=== PATIENT | female | born 1960 | race Hispanic/Latino ===

== ENCOUNTER 2021-02-07 19:43 | Inpatient (IN) | payer OTHER, SELFPAY ==
[2021-02-07] VITALS (7 sets, daily range): BP systolic 94–128; BP diastolic 45–72
[~2021-02-07] VITALS: Ht 154.9 cm; Wt 59.5 kg
[2021-02-07 20:28] LABS: ABG BASE EXCESS -1.8 mmol/L (-2.0-3.0); ABG HCO3 19.5 mmol/L (21.0-28.0); ABG OXYGEN SATURATION 95.9 % (95.0-99.0); ABG PCO2 25 mmHg (32-45)
[2021-02-07] MEDS ORDERED: FAMOTIDINE 20MG VIAL IV ONE (20:30)
[2021-02-07] MEDS ORDERED: ACETAMINOPHEN 325 MG TAB PO ONE (20:30)
[2021-02-07 20:33] LABS: BASOPHILS % (AUTO) 0.3 % (0.0-5.0); HEMATOCRIT 31.6 % (36-48); LYMPHOCYTES % (AUTO) 29.8 % (21.0-51.0); MEAN CORPUSCULAR HEMOGLOBIN 27.3 pg (27.0-33.0); MEAN CORPUSCULAR HGB CONC 32.3 g/dL (32.0-36.0); MEAN CORPUSCULAR VOLUME 84.5 fL (79-99); MONOCYTES % (AUTO) 11.1 % (3.0-13.0); NEUTROPHILS % (AUTO) 58.3 % (40.0-77.0); PLATELET COUNT (AUTO) 75 K/uL (130-400); RED BLOOD CELL COUNT(AUTO) 3.74 MIL/uL (4.00-5.50); RED CELL DISTRIBUTION WIDTH 15.4 % (11.0-15.5); WHITE BLOOD COUNT (AUTO) 3.8 K/uL (4.8-10.8)
[2021-02-07] MEDS ORDERED: ACETAMINOPHEN 325 MG TAB ONE (20:34)
[2021-02-07 20:42] LABS: CREATININE 0.8 mg/dL (0.5-1.5); POTASSIUM 3.3 mmol/L (3.5-5.1)
[2021-02-07 20:43] LABS: INR 1.14 (0.85-1.15); PROTHROMBIN TIME 12.3 SEC (9.6-11.6)
[2021-02-07 20:44] LABS: PARTIAL THROMBOPLASTIN TIME 28.7 SEC (26.3-35.5)
[2021-02-07 20:46] LABS: ALBUMIN 2.8 g/dL (3.5-5.0); BILIRUBIN,DIRECT 0.4 mg/dL (0.0-0.3); BILIRUBIN,TOTAL 0.8 mg/dL (0.2-1.0); CRP QUANTITATIVE 33.1 mg/L (0.00-9.0); TOTAL PROTEIN, SERUM 7.2 g/dL (6.0-8.3)
[2021-02-07 20:48] LABS: APPEARANCE,URINE Clear (CLEAR); BILIRUBIN,URINE Small (NEGATIVE); COLOR,URINE Dark Yellow (YELLOW); GLUCOSE, URINE (UA) Negative (NEGATIVE); KETONES,URINE Trace mg/dL (NEGATIVE); LEUKOCYTE ESTERASE ,URINE Large (NEGATIVE); NITRATE,URINE Negative (NEGATIVE); OCCULT BLOOD,URINE Negative (NEGATIVE); PH,URINE 6.5 (5.0-8.0); PROTEIN,URINE POS 1+ mg/dL (NEGATIVE); UROBILINOGEN,URINE >=8.0 mg/dL (0.2-1.0)
[2021-02-07 21:00] LABS: SQUAMOUS EPITHELIAL CELL,UR TNTC /HPF (0-2)
[2021-02-07 21:03] LABS: BACTERIA,URINE Moderate /HPF (None Seen)
[2021-02-07 21:10] LABS: MUCUS,URINE Moderate LPF (None Seen)
[2021-02-07] MEDS ORDERED: 0.9%NACL 1000ML 1,000 ML IV STA (21:19)
[2021-02-07] MEDS ORDERED: 0.9%NACL 1000ML 1,000 ML IV ONE (21:23)
[2021-02-07] MEDS ORDERED: AZIT500T2 PO (21:24)
[2021-02-07] MEDS ORDERED: DEXT15LI57 PO (21:24)
[2021-02-07] MEDS ORDERED: AZITHROMYCIN 500MG VIAL IVPB ONE (21:30)
[2021-02-07] MEDS ORDERED: CEFTRIAXONE 1G VIAL IVP ONE (21:30)
[2021-02-07] MEDS ORDERED: 0.9% NACL 250ML IVPB ONE (21:30)
[2021-02-07 21:46] LABS: ERYTHROCYTE SEDIMENTATION RATE 45 MM/HR (0-30)
[2021-02-07] MEDS ORDERED: AZITHROMYCIN 500MG+NS 250ML 250 ML IV ONE (22:00)
[2021-02-07] MEDS: CEFTRIAXONE 1G VIAL IVP SCH (23:00)
[2021-02-07] MEDS ORDERED: ERGOCALCIFEROL (VITAMIN D2) 50,000 UNIT CAPSULE PO ONE (23:00)
[2021-02-07] MEDS ORDERED: LACTATED RINGERS 1000ML 1,000 ML IV SCH (23:00)
[2021-02-07] MEDS ORDERED: POTASSIUM CHLORIDE 10% ELIXIR 20 MEQ/15 ML UDCUP PO PRN (23:30)
[2021-02-07] MEDS ORDERED: POTASSIUM CHLORIDE 20MEQ/100ML 100 ML IV PRN (23:30)
[2021-02-07] MEDS ORDERED: LIDOCAINE HCL-MPF 1% 2ML VIAL IV PRN (23:30)
[2021-02-08] VITALS (7 sets, daily range): BP systolic 106–132; BP diastolic 47–75
[2021-02-08] MEDS ORDERED: ERGOCALCIFEROL (VITAMIN D2) 50,000 UNIT CAPSULE ONE (00:29)
[2021-02-08] MEDS: LACTATED RINGERS IV ONE ×2 (00:31→01:12)
[2021-02-08] MEDS: DOXYCYCLINE 100MG+NS 250ML IV SCH ×4 (00:31→23:01)
[2021-02-08] MEDS ORDERED: ALBUTEROL INHALER 90MCG/INH IH SCH (01:30)
[2021-02-08] MEDS ORDERED: ACETAMINOPHEN 325 MG TAB PO PRN (01:30)
[2021-02-08] MEDS ORDERED: NITROGLYCERIN 50MG/D5W 250ML 1 BOT ONE (03:10)
[2021-02-08 04:56] LABS: HEMATOCRIT 28.7 % (36-48); LYMPHOCYTES % (AUTO) 43.5 % (21.0-51.0); MEAN CORPUSCULAR HEMOGLOBIN 27.1 pg (27.0-33.0); MEAN CORPUSCULAR HGB CONC 32.4 g/dL (32.0-36.0); MEAN CORPUSCULAR VOLUME 83.7 fL (79-99); PLATELET COUNT (AUTO) 48 K/uL (130-400); RED BLOOD CELL COUNT(AUTO) 3.43 MIL/uL (4.00-5.50); RED CELL DISTRIBUTION WIDTH 15.3 % (11.0-15.5); WHITE BLOOD COUNT (AUTO) 2.1 K/uL (4.8-10.8)
[2021-02-08 05:20] LABS: ALBUMIN 2.4 g/dL (3.5-5.0); BILIRUBIN,TOTAL 0.7 mg/dL (0.2-1.0); CREATININE 0.6 mg/dL (0.5-1.5); CRP QUANTITATIVE 26.4 mg/L (0.00-9.0); POTASSIUM 3.2 mmol/L (3.5-5.1); TOTAL PROTEIN, SERUM 6.3 g/dL (6.0-8.3)
[2021-02-08] MEDS: GUAIFENESIN-DM 200/20 MG 10 ML PO PRN ×2 (05:37→23:02)
[2021-02-08 07:15] LABS: LYMPHOCYTES % (MANUAL) 39 % (22-44); MAN.DIFF COMMENT-IMPRESSION MANUAL DIFFERENTIAL; MONOCYTES % (MANUAL) 8 % (2-9); PLATELET MORPHOLOGY COMMENT MARKED DECREASE; SEGMENTED NEUTROPHILS % 53 % (40-70)
[2021-02-08] MEDS ORDERED: ENOXAPARIN SODIUM 40 MG/0.4 ML SYRINGE SQ SCH (09:00)
[2021-02-08] MEDS: FAMOTIDINE 20MG TAB PO SCH (09:24)
[2021-02-08] MEDS: ASCORBIC ACID 500 MG TAB PO SCH (09:24)
[2021-02-08] MEDS: ZINC SULFATE 220 CAPSULE PO SCH (09:24)
[2021-02-08] MEDS: KCL 20 MEQ ERTAB PO PRN ×2 (11:57→14:04)
[2021-02-08] MEDS: CEFTRIAXONE 1G VIAL IVP SCH ×2 (11:59→23:01)
[2021-02-08] MEDS ORDERED: ASPIRIN 81MG CHEW TAB PO ONE (14:00)
[2021-02-09 03:47] VITALS: BP 113/56
[2021-02-09 05:00] LABS: BASOPHILS % (AUTO) 0.4 % (0.0-5.0); HEMATOCRIT 29.2 % (36-48); LYMPHOCYTES % (AUTO) 33.9 % (21.0-51.0); MEAN CORPUSCULAR HEMOGLOBIN 26.6 pg (27.0-33.0); MEAN CORPUSCULAR HGB CONC 31.5 g/dL (32.0-36.0); MEAN CORPUSCULAR VOLUME 84.4 fL (79-99); MONOCYTES % (AUTO) 7.7 % (3.0-13.0); NEUTROPHILS % (AUTO) 57.3 % (40.0-77.0); PLATELET COUNT (AUTO) 59 K/uL (130-400); RED BLOOD CELL COUNT(AUTO) 3.46 MIL/uL (4.00-5.50); RED CELL DISTRIBUTION WIDTH 15.4 % (11.0-15.5); WHITE BLOOD COUNT (AUTO) 2.7 K/uL (4.8-10.8)
[2021-02-09 05:20] LABS: ALBUMIN 2.3 g/dL (3.5-5.0); BILIRUBIN,TOTAL 0.6 mg/dL (0.2-1.0); CREATININE 0.5 mg/dL (0.5-1.5); CRP QUANTITATIVE 28.5 mg/L (0.00-9.0); POTASSIUM 3.2 mmol/L (3.5-5.1); TOTAL PROTEIN, SERUM 6.2 g/dL (6.0-8.3)
[2021-02-09] MEDS: GUAIFENESIN-DM 200/20 MG 10 ML PO PRN ×3 (05:45→22:40)
[2021-02-09] MEDS: ALBUTEROL INHALER 90MCG/INH IH SCH ×4 (06:00→18:22)
[2021-02-09 07:10] VITALS: BP 127/69
[2021-02-09] MEDS: FAMOTIDINE 20MG TAB PO SCH (09:14)
[2021-02-09] MEDS: ASPIRIN 81MG CHEW TAB PO SCH (09:15)
[2021-02-09] MEDS: ASCORBIC ACID 500 MG TAB PO SCH (09:15)
[2021-02-09] MEDS: ZINC SULFATE 220 CAPSULE PO SCH (09:15)
[2021-02-09 10:38] VITALS: BP 129/66
[2021-02-09] MEDS: CEFTRIAXONE 1G VIAL IVP SCH ×2 (11:30→22:39)
[2021-02-09] MEDS: DOXYCYCLINE 100MG+NS 250ML IV SCH (13:54)
[2021-02-09 15:15] VITALS: BP 127/68
[2021-02-09 20:17] VITALS: BP 132/71
[2021-02-09] MEDS: KCL 20 MEQ ERTAB PO PRN (22:40)
[2021-02-09 23:32] VITALS: BP 116/59
[2021-02-10] MEDS: ALBUTEROL INHALER 90MCG/INH IH SCH ×3 (00:14→14:15)
[2021-02-10 03:09] VITALS: BP 131/71
[2021-02-10] MEDS: KCL 20 MEQ ERTAB PO PRN (04:28)
[2021-02-10 05:01] LABS: BASOPHILS % (AUTO) 0.3 % (0.0-5.0); EOSINOPHILS % (AUTO) 0.6 % (0.0-8.0); HEMATOCRIT 32.2 % (36-48); LYMPHOCYTES % (AUTO) 34.9 % (21.0-51.0); MEAN CORPUSCULAR HEMOGLOBIN 26.7 pg (27.0-33.0); MEAN CORPUSCULAR HGB CONC 32.3 g/dL (32.0-36.0); MEAN CORPUSCULAR VOLUME 82.8 fL (79-99); MONOCYTES % (AUTO) 7.7 % (3.0-13.0); NEUTROPHILS % (AUTO) 56.2 % (40.0-77.0); PLATELET COUNT (AUTO) 87 K/uL (130-400); RED BLOOD CELL COUNT(AUTO) 3.89 MIL/uL (4.00-5.50); RED CELL DISTRIBUTION WIDTH 15.4 % (11.0-15.5); WHITE BLOOD COUNT (AUTO) 3.5 K/uL (4.8-10.8)
[2021-02-10 05:17] LABS: ALBUMIN 2.5 g/dL (3.5-5.0); BILIRUBIN,TOTAL 0.8 mg/dL (0.2-1.0); CREATININE 0.5 mg/dL (0.5-1.5); CRP QUANTITATIVE 33.7 mg/L (0.00-9.0); POTASSIUM 3.5 mmol/L (3.5-5.1); TOTAL PROTEIN, SERUM 6.9 g/dL (6.0-8.3)
[2021-02-10 07:10] VITALS: BP 125/75
[2021-02-10] MEDS: ZINC SULFATE 220 CAPSULE PO SCH (09:38)
[2021-02-10] MEDS: FAMOTIDINE 20MG TAB PO SCH (09:39)
[2021-02-10] MEDS: ASPIRIN 81MG CHEW TAB PO SCH (09:39)
[2021-02-10] MEDS: ASCORBIC ACID 500 MG TAB PO SCH (09:39)
[2021-02-10 10:55] VITALS: BP 141/71
[2021-02-10] MEDS: CEFTRIAXONE 1G VIAL IVP SCH (14:14)
[2021-02-10] MEDS ORDERED: CLOTRIMAZOLE 30 GM CREAM.GM. TP SCH (14:57)
[2021-02-10 15:05] VITALS: BP 121/70
[2021-02-10] MEDS ORDERED: AEC81 PO (15:40)
[2021-02-10] MEDS ORDERED: CEFU500T67 PO (15:40)
[2021-02-10] MEDS ORDERED: THIA100T75 PO (16:38)
[2021-02-10] MEDS ORDERED: FOLI0.4T6 PO (16:38)
[2021-02-10] MEDS ORDERED: PANTOPRAZOLE 40 MG TAB DR PO SCH (17:30)
[2021-02-11 06:12] LABS: HEPATITIS A ANTIBODY IGM Negative (Negative); HEPATITIS B CORE IGM Negative (Negative); HEPATITIS Bs ANTIGEN SCREEN P Negative (Negative)
== END 2021-02-10 19:40 | disposition home or self-care (01) | DRG 177 ==
LOC: EDH 19:43 → EDHIP 19:44 → 4AH 02-08 05:41
PROVIDERS: ADMIT Internal Medicine; ATTEND Internal Medicine
DX: U07.1 COVID-19 (principal); A41.9 Sepsis, unspecified organism; R65.20 Severe sepsis without septic shock; J12.82 Pneumonia due to coronavirus disease 2019; J96.91 Respiratory failure, unspecified with hypoxia; D61.818 Other pancytopenia; E87.4 Mixed disorder of acid-base balance; N39.0 Urinary tract infection, site not specified; E87.6 Hypokalemia; B35.9 Dermatophytosis, unspecified; R53.81 Other malaise; Z56.0 Unemployment, unspecified; Z88.8 Allergy status to other drugs, medicaments and biological substances
CPT/HCPCS: 36415; 36600; 71045; 76705; 80053; 80074; 80076; 81001; 82550; 82803; 83605; 83615; 84145; 84484; 85025; 85378; 85610; 85651; 85730; 86140; 87040; 87088; 87635; 87804; 93005; 93306; 93356; 93970; 94760; C9803; G0378; J0456; J0696; J3490; J7030; J7120

== ENCOUNTER 2022-02-15 23:16 | Emergency (ER) | payer OTHER ==
[~2022-02-15] VITALS: Ht 154.9 cm; Wt 63.5 kg
[~2022-02-15 23:16] MED LIST: CYAN-35 PO; FERR324T4 PO; FOLI0.4T6 PO; PANT40TA54 PO; THIA100T75 PO
[2022-02-15] MEDS ORDERED: MORPHINE 2 MG SYG ONE (23:38)
[2022-02-16] MEDS ORDERED: MORPHINE 2 MG SYG IVP ONE
[2022-02-16] MEDS ORDERED: IBUP-1493 PO (00:53)
[2022-02-16 01:11] VITALS: BP 130/88
== END 2022-02-16 01:24 | disposition home or self-care (01) ==
LOC: EDH 23:16
DX: S82.002A Unspecified fracture of left patella, initial encounter for closed fracture (principal); X58.XXXA Exposure to other specified factors, initial encounter; Y93.89 Activity, other specified; Y92.89 Other specified places as the place of occurrence of the external cause; Y99.8 Other external cause status
CPT/HCPCS: 29505; 73552; 73562; 73590; 96374

== ENCOUNTER 2022-02-23 08:16 | Inpatient (IN) | payer OTHER ==
[~2022-02-23] VITALS: Ht 154.9 cm; Wt 61.2 kg
[~2022-02-23 08:16] MED LIST changes: +IBUP-1493 PO
[2022-02-23 09:03] LABS: BASOPHILS % (AUTO) 0.4 % (0.0-5.0); EOSINOPHILS % (AUTO) 2.1 % (0.0-8.0); HEMATOCRIT 26.7 % (36-48); LYMPHOCYTES % (AUTO) 28.2 % (21.0-51.0); MEAN CORPUSCULAR HEMOGLOBIN 35.8 pg (27.0-33.0); MEAN CORPUSCULAR VOLUME 99.6 fL (79-99); MONOCYTES % (AUTO) 7.5 % (3.0-13.0); NEUTROPHILS % (AUTO) 61.2 % (40.0-77.0); PLATELET COUNT (AUTO) 79 K/uL (130-400); RED BLOOD CELL COUNT(AUTO) 2.68 MIL/uL (4.00-5.50); RED CELL DISTRIBUTION WIDTH 15.9 % (11.0-15.5); WHITE BLOOD COUNT (AUTO) 4.7 K/uL (4.8-10.8)
[2022-02-23 09:18] LABS: ALBUMIN 2.8 g/dL (3.5-5.0); CREATININE 0.5 mg/dL (0.5-1.5); POTASSIUM 3.3 mmol/L (3.5-5.1); TOTAL PROTEIN, SERUM 6.6 g/dL (6.0-8.3)
[2022-02-23 09:27] LABS: B-TYPE NATRIURETIC PEPTIDE 72 pg/mL (0-100)
[2022-02-23] MEDS ORDERED: ASPIRIN 81MG CHEW TAB PO ONE (10:00)
[2022-02-23] MEDS ORDERED: ONDANSETRON 4MG INJ ONE (10:09)
[2022-02-23 10:14] LABS: APPEARANCE,URINE CLEAR (CLEAR); BILIRUBIN,URINE NEGATIVE (NEGATIVE); COLOR,URINE YELLOW (YELLOW); GLUCOSE, URINE (UA) NEGATIVE (NEGATIVE); KETONES,URINE NEGATIVE (NEGATIVE); LEUKOCYTE ESTERASE ,URINE NEGATIVE Leu/uL (NEGATIVE); NITRATE,URINE NEGATIVE (NEGATIVE); PROTEIN,URINE NEGATIVE (NEGATIVE); UROBILINOGEN,URINE 12 mg/dL (0.2-1.0)
[2022-02-23 10:24] LABS: MUCUS,URINE RARE LPF (None Seen); OTHER CASTS, URINE 1 /LPF (None Seen); SQUAMOUS EPITHELIAL CELL,UR FEW /HPF (0-2)
[2022-02-23] MEDS ORDERED: ONDANSETRON 4MG INJ IVP ONE (10:30)
[2022-02-23] MEDS ORDERED: IOHEXOL 350 MG/ML 100ML INFUS..BTL IV ONE (11:23)
[2022-02-23] MEDS ORDERED: NITROGLYCERIN 0.4 MG SL TAB SL PRN (15:00)
[2022-02-23] MEDS ORDERED: ACETAMINOPHEN 325 MG TAB PO PRN (15:00)
[2022-02-23] MEDS ORDERED: MAG/ALUM/SIMETH 30 ML UDCUP PO PRN (15:00)
[2022-02-23] MEDS: 0.9%NACL 1000ML 1,000 ML IV SCH (15:00)
[2022-02-23] MEDS ORDERED: LIDOCAINE HCL-MPF 1% 2ML VIAL IV PRN (15:00)
[2022-02-23] MEDS ORDERED: POTASSIUM CHLORIDE 20MEQ/100ML 100 ML IV PRN (15:00)
[2022-02-23] MEDS ORDERED: LACTULOSE 20 GM/30 ML UDCUP PO PRN (15:00)
[2022-02-23] MEDS ORDERED: POTASSIUM CHLORIDE 10% ELIXIR 20 MEQ/15 ML UDCUP PO PRN (15:00)
[2022-02-23] MEDS ORDERED: GUAIFENESIN-DM 200/20 MG 10 ML PO PRN (15:00)
[2022-02-23] MEDS ORDERED: MAGNESIUM 2GM PREMIX 50ML 50 ML IV PRN (15:00)
[2022-02-23] MEDS ORDERED: LIDOCAINE HCL 2% VISCOUS 15 ML UDCUP PO ONE (15:30)
[2022-02-23] MEDS ORDERED: MAG/ALUM/SIMETH 30 ML UDCUP PO ONE (15:30)
[2022-02-23] MEDS ORDERED: DICYCLOMINE HCL 10 MG/5 ML ML PO ONE (15:30)
[2022-02-23 15:36] LABS: INR 1.25 (0.85-1.15); PROTHROMBIN TIME 13.5 SEC (9.6-11.6)
[2022-02-23 15:38] LABS: PARTIAL THROMBOPLASTIN TIME 23.7 SEC (26.3-35.5)
[2022-02-23] MEDS ORDERED: KETOROLAC 15MG/ML VIAL (15MG/ML) ONE (17:35)
[2022-02-23] MEDS: KETOROLAC 15MG/ML VIAL (15MG/ML) IM PRN (17:35)
[2022-02-23] MEDS: ONDANSETRON 4MG INJ IV PRN (19:52)
[2022-02-23] MEDS: ATORVASTATIN 40 MG TABLET PO SCH (19:56)
[2022-02-23] MEDS: FAMOTIDINE 20MG TAB PO SCH (19:56)
[2022-02-23 20:00] VITALS: BP 149/85
[2022-02-23] MEDS ORDERED: FAMOTIDINE 20MG VIAL IV PRN (21:00)
[2022-02-24] VITALS: BP 148/73
[2022-02-24] MEDS: 0.9%NACL 1000ML 1,000 ML IV SCH ×3 (00:06→20:54)
[2022-02-24] MEDS: KETOROLAC 15MG/ML VIAL (15MG/ML) IM PRN ×3 (00:13→18:45)
[2022-02-24 04:00] VITALS: BP 126/69
[2022-02-24 05:04] LABS: BASOPHILS % (AUTO) 0.3 % (0.0-5.0); HEMATOCRIT 24.5 % (36-48); LYMPHOCYTES % (AUTO) 33.3 % (21.0-51.0); MEAN CORPUSCULAR HEMOGLOBIN 36.1 pg (27.0-33.0); MEAN CORPUSCULAR HGB CONC 35.1 g/dL (32.0-36.0); MEAN CORPUSCULAR VOLUME 102.9 fL (79-99); MONOCYTES % (AUTO) 9.3 % (3.0-13.0); NEUTROPHILS % (AUTO) 52.8 % (40.0-77.0); PLATELET COUNT (AUTO) 80 K/uL (130-400); RED BLOOD CELL COUNT(AUTO) 2.38 MIL/uL (4.00-5.50); RED CELL DISTRIBUTION WIDTH 16.5 % (11.0-15.5)
[2022-02-24 05:34] LABS: CREATININE 0.5 mg/dL (0.5-1.5); MAGNESIUM 1.9 mg/dL (1.80-2.40); PHOSPHORUS 2.7 mg/dL (2.5-4.9); POTASSIUM 3.2 mmol/L (3.5-5.1)
[2022-02-24] MEDS: KCL 20 MEQ ERTAB PO PRN ×3 (06:09→14:10)
[2022-02-24 08:00] VITALS: BP 136/69
[2022-02-24] MEDS: FAMOTIDINE 20MG TAB PO SCH ×2 (09:01→20:54)
[2022-02-24 11:57] VITALS: BP 118/63
[2022-02-24] MEDS: CLOPIDOGREL 75MG TAB PO SCH (14:11)
[2022-02-24 16:00] VITALS: BP 130/66
[2022-02-24] MEDS ORDERED: HYDROCORTISONE 1% CREAM 28G TP PRN (18:00)
[2022-02-24] MEDS: ASPIRIN 81 MG EC TAB PO SCH (18:40)
[2022-02-24 20:00] VITALS: BP 129/68
[2022-02-24] MEDS: DiphenhydrAMINE HCL 50 MG/ML VIAL IV PRN (20:54)
[2022-02-24] MEDS: ATORVASTATIN 40 MG TABLET PO SCH (20:54)
[2022-02-25] VITALS: BP 118/81
[2022-02-25] MEDS: DiphenhydrAMINE HCL 50 MG/ML VIAL IV PRN (02:54)
[2022-02-25 04:00] VITALS: BP 143/87
[2022-02-25 04:48] LABS: BASOPHILS % (AUTO) 0.4 % (0.0-5.0); EOSINOPHILS % (AUTO) 4.2 % (0.0-8.0); HEMATOCRIT 26.1 % (36-48); LYMPHOCYTES % (AUTO) 29.8 % (21.0-51.0); MEAN CORPUSCULAR HEMOGLOBIN 36.4 pg (27.0-33.0); MEAN CORPUSCULAR HGB CONC 34.9 g/dL (32.0-36.0); MEAN CORPUSCULAR VOLUME 104.4 fL (79-99); MONOCYTES % (AUTO) 9.7 % (3.0-13.0); NEUTROPHILS % (AUTO) 55.3 % (40.0-77.0); PLATELET COUNT (AUTO) 71 K/uL (130-400); RED CELL DISTRIBUTION WIDTH 17.4 % (11.0-15.5); WHITE BLOOD COUNT (AUTO) 4.7 K/uL (4.8-10.8)
[2022-02-25 04:55] LABS: CREATININE 0.5 mg/dL (0.5-1.5); POTASSIUM 3.7 mmol/L (3.5-5.1)
[2022-02-25] MEDS: KCL 20 MEQ ERTAB PO PRN ×2 (06:11→14:32)
[2022-02-25 08:00] VITALS: BP 152/79
[2022-02-25] MEDS: 0.9%NACL 1000ML 1,000 ML IV SCH ×2 (08:35→17:00)
[2022-02-25] MEDS: KETOROLAC 15MG/ML VIAL (15MG/ML) IM PRN ×3 (08:36→22:07)
[2022-02-25] MEDS: FAMOTIDINE 20MG TAB PO SCH ×2 (08:36→22:03)
[2022-02-25] MEDS: CLOPIDOGREL 75MG TAB PO SCH (08:37)
[2022-02-25] MEDS: ASPIRIN 81 MG EC TAB PO SCH (08:37)
[2022-02-25 12:00] VITALS: BP 119/64
[2022-02-25 16:00] VITALS: BP 129/74
[2022-02-25] MEDS: ACETAMINOPHEN 325 MG TAB PO PRN (17:42)
[2022-02-25] MEDS ORDERED: CEFAZOLIN SODIUM 1 GM VIAL IVP PRN (18:30)
[2022-02-25 20:27] VITALS: BP 140/73
[2022-02-25] MEDS: ATORVASTATIN 40 MG TABLET PO SCH (22:03)
[2022-02-26] VITALS (21 sets, daily range): BP systolic 116–154; BP diastolic 53–82
[2022-02-26] MEDS: 0.9%NACL 1000ML 1,000 ML IV SCH ×3 (02:32→21:03)
[2022-02-26] MEDS: KETOROLAC 15MG/ML VIAL (15MG/ML) IM PRN ×2 (04:18→10:28)
[2022-02-26 05:57] LABS: CREATININE 0.4 mg/dL (0.5-1.5); POTASSIUM 3.8 mmol/L (3.5-5.1)
[2022-02-26 06:54] LABS: BASOPHILS % (AUTO) 0.7 % (0.0-5.0); HEMATOCRIT 27.4 % (36-48); LYMPHOCYTES % (AUTO) 29.4 % (21.0-51.0); MEAN CORPUSCULAR HEMOGLOBIN 36.8 pg (27.0-33.0); MEAN CORPUSCULAR HGB CONC 34.7 g/dL (32.0-36.0); MEAN CORPUSCULAR VOLUME 106.2 fL (79-99); MONOCYTES % (AUTO) 8.1 % (3.0-13.0); NEUTROPHILS % (AUTO) 55.3 % (40.0-77.0); PLATELET COUNT (AUTO) 67 K/uL (130-400); RED BLOOD CELL COUNT(AUTO) 2.58 MIL/uL (4.00-5.50); RED CELL DISTRIBUTION WIDTH 18.1 % (11.0-15.5); WHITE BLOOD COUNT (AUTO) 4.2 K/uL (4.8-10.8)
[2022-02-26 07:09] LABS: PLATELET MORPHOLOGY COMMENT DECREASED
[2022-02-26] MEDS: ACETAMINOPHEN 325 MG TAB PO PRN (07:48)
[2022-02-26] MEDS: FAMOTIDINE 20MG TAB PO SCH ×2 (09:00→20:54)
[2022-02-26] MEDS ORDERED: LIDOCAINE PF 100MG/5ML (2%) SYRINGE 5ML ONE (12:42)
[2022-02-26] MEDS ORDERED: DEXAMETHASONE SOD PHOSPHATE 10MG/ML 1ML VIAL ONE (12:42)
[2022-02-26] MEDS ORDERED: SUCCINYLCHOLINE 200MG/10ML SYR ONE (12:42)
[2022-02-26] MEDS ORDERED: PROPOFOL 10 MG/ML 20ML VIAL IV ONE (12:45)
[2022-02-26] MEDS ORDERED: ONDANSETRON 4MG INJ ONE (12:45)
[2022-02-26] MEDS ORDERED: GLYCOPYRROLATE 1 MG/5 ML SYRINGE ONE ×2 (12:45→19:42)
[2022-02-26] MEDS ORDERED: NEOSTIGMINE 5MG/5ML SYR IV ONE ×2 (12:45→19:42)
[2022-02-26] MEDS ORDERED: MIDAZOLAM HCL 1 MG/ML 2ML VIAL ONE (12:46)
[2022-02-26] MEDS ORDERED: FENTANYL CITRATE PF 50 MCG/1 ML 2ML VIAL ONE ×3 (12:46→19:47)
[2022-02-26] MEDS ORDERED: ROCURONIUM 10MG/1ML SYR 10 MG/ML ML ONE (12:46)
[2022-02-26] MEDS ORDERED: ROPIVACAINE 0.5% 5MG/ML 30ML IJ ONE (13:04)
[2022-02-26] MEDS ORDERED: KCL 20 MEQ ERTAB PO PRN (19:30)
[2022-02-26] MEDS ORDERED: CYCLOBENZAPRINE HCL 10 MG TABLET PO PRN (19:30)
[2022-02-26] MEDS ORDERED: LIDOCAINE HCL-MPF 1% 2ML VIAL IV PRN (19:30)
[2022-02-26] MEDS ORDERED: FERROUS FUMARATE 324 MG TABLET PO PRN (19:30)
[2022-02-26] MEDS ORDERED: POTASSIUM CHLORIDE 20MEQ/100ML 100 ML IV PRN (19:30)
[2022-02-26] MEDS ORDERED: CALCIUM CARB 500MG PO PRN (19:30)
[2022-02-26] MEDS ORDERED: POTASSIUM CHLORIDE 10% ELIXIR 20 MEQ/15 ML UDCUP PO PRN (19:30)
[2022-02-26] MEDS ORDERED: HYDROCODONE/ACETAMINOPHEN 5/325 MG TAB PO PRN (19:30)
[2022-02-26] MEDS: ATORVASTATIN 40 MG TABLET PO SCH (20:54)
[2022-02-26] MEDS: DOCUSATE SODIUM 100 MG CAP PO SCH (20:54)
[2022-02-26] MEDS: CEFAZOLIN SODIUM 1 GM VIAL IVP SCH (21:00)
[2022-02-27 04:15] LABS: HEMATOCRIT 25.6 % (36-48); MEAN CORPUSCULAR HEMOGLOBIN 36.8 pg (27.0-33.0); MEAN CORPUSCULAR HGB CONC 35.5 g/dL (32.0-36.0); MEAN CORPUSCULAR VOLUME 103.6 fL (79-99); RED BLOOD CELL COUNT(AUTO) 2.47 MIL/uL (4.00-5.50); RED CELL DISTRIBUTION WIDTH 17.8 % (11.0-15.5); WHITE BLOOD COUNT (AUTO) 5.6 K/uL (4.8-10.8)
[2022-02-27 04:19] LABS: CREATININE 0.6 mg/dL (0.5-1.5); POTASSIUM 4.4 mmol/L (3.5-5.1)
[2022-02-27 04:21] LABS: INR 1.29 (0.85-1.15); PROTHROMBIN TIME 13.9 SEC (9.6-11.6)
[2022-02-27] MEDS: CEFAZOLIN SODIUM 1 GM VIAL IVP SCH (04:30)
[2022-02-27 04:31] VITALS: BP 140/74
[2022-02-27] MEDS: ONDANSETRON 4MG INJ IV PRN (04:35)
[2022-02-27] MEDS: KETOROLAC 15MG/ML VIAL (15MG/ML) IV PRN ×2 (06:45→10:46)
[2022-02-27] MEDS: FAMOTIDINE 20MG TAB PO SCH ×2 (07:29→20:35)
[2022-02-27] MEDS: DOCUSATE SODIUM 100 MG CAP PO SCH ×2 (07:29→20:35)
[2022-02-27] MEDS: HYDROCODONE/ACETAMINOPHEN 5/325 MG TAB PO PRN ×4 (07:30→22:22)
[2022-02-27] MEDS: DIPHENHYDRAMINE HCL 25 MG CAPSULE PO PRN ×2 (07:33→15:39)
[2022-02-27 08:00] VITALS: BP 133/70
[2022-02-27] MEDS: 0.9%NACL 1000ML 1,000 ML IV SCH ×2 (09:00→19:00)
[2022-02-27] MEDS: POLYETHYLENE GLYCOL 3350 17 GM POWD.PACK PO SCH (09:26)
[2022-02-27] MEDS ORDERED: ASPIRIN 81MG CHEW TAB PO SCH (11:00)
[2022-02-27] MEDS ORDERED: METOPROLOL SUCCINATE 25 MG TAB.SR.24H PO SCH (11:00)
[2022-02-27 11:07] LABS: RETICULOCYTE % (AUTO) 11.81 % (0.42-2.23)
[2022-02-27 11:55] LABS: THYROID STIMULATING HORMONE 0.38 uIU/mL (0.36-3.74)
[2022-02-27 12:00] VITALS: BP 123/67
[2022-02-27] MEDS: PSYLLIUM SEED 1 EACH PACKET PO SCH (12:00)
[2022-02-27 16:00] VITALS: BP 113/54
[2022-02-27 20:08] VITALS: BP 152/86
[2022-02-27] MEDS: ATORVASTATIN 40 MG TABLET PO SCH (20:35)
[2022-02-28 00:31] VITALS: BP 146/78
[2022-02-28 03:57] VITALS: BP 131/75
[2022-02-28 05:15] LABS: BASOPHILS % (AUTO) 0.5 % (0.0-5.0); EOSINOPHILS % (AUTO) 1.7 % (0.0-8.0); HEMATOCRIT 27.2 % (36-48); LYMPHOCYTES % (AUTO) 21.8 % (21.0-51.0); MEAN CORPUSCULAR HEMOGLOBIN 36.6 pg (27.0-33.0); MEAN CORPUSCULAR HGB CONC 34.6 g/dL (32.0-36.0); MEAN CORPUSCULAR VOLUME 105.8 fL (79-99); MONOCYTES % (AUTO) 9.2 % (3.0-13.0); NEUTROPHILS % (AUTO) 66.3 % (40.0-77.0); PLATELET COUNT (AUTO) 78 K/uL (130-400); RED BLOOD CELL COUNT(AUTO) 2.57 MIL/uL (4.00-5.50); RED CELL DISTRIBUTION WIDTH 18.5 % (11.0-15.5); WHITE BLOOD COUNT (AUTO) 8.5 K/uL (4.8-10.8)
[2022-02-28 05:24] LABS: INR 1.23 (0.85-1.15); PROTHROMBIN TIME 13.2 SEC (9.6-11.6)
[2022-02-28 05:33] LABS: CREATININE 0.7 mg/dL (0.5-1.5); PHOSPHORUS 3.4 mg/dL (2.5-4.9); POTASSIUM 3.9 mmol/L (3.5-5.1)
[2022-02-28] MEDS: HYDROCODONE/ACETAMINOPHEN 5/325 MG TAB PO PRN ×2 (06:28→14:22)
[2022-02-28 07:30] VITALS: BP 140/72
[2022-02-28] MEDS ORDERED: ASPIRIN 81MG CHEW TAB PO SCH (09:00)
[2022-02-28] MEDS ORDERED: METOPROLOL SUCCINATE 25 MG TAB.SR.24H PO SCH (09:00)
[2022-02-28] MEDS: DOCUSATE SODIUM 100 MG CAP PO SCH (09:14)
[2022-02-28] MEDS: FAMOTIDINE 20MG TAB PO SCH (09:16)
[2022-02-28] MEDS: POLYETHYLENE GLYCOL 3350 17 GM POWD.PACK PO SCH (09:16)
[2022-02-28] MEDS: DiphenhydrAMINE HCL 50 MG/ML VIAL IV PRN (09:17)
[2022-02-28] MEDS ORDERED: HYDR28.32 TP (10:33)
[2022-02-28] MEDS ORDERED: METO25TA3 PO (10:33)
[2022-02-28] MEDS ORDERED: FAMO20TA8 PO (10:33)
[2022-02-28] MEDS ORDERED: ATOR40TA69 PO (10:33)
[2022-02-28] MEDS ORDERED: ASPI-1005 PO (10:33)
[2022-02-28 11:00] VITALS: BP 137/74
[2022-02-28] MEDS: PSYLLIUM SEED 1 EACH PACKET PO SCH (12:30)
[2022-02-28] MEDS ORDERED: BISACODYL 5 MG TABLET.DR PO PRN (19:30)
[2022-03-01] MEDS ORDERED: BISACODYL 10 MG SUPP.RECT RC PRN (19:30)
== END 2022-02-28 14:30 | disposition home or self-care (01) | DRG 515 ==
LOC: EDH 08:16 → EDHIP 08:17 → UNDOADMIN 14:45 → 4DH 20:11
PROVIDERS: ADMIT Internal Medicine; ATTEND Internal Medicine
PROC: 0QSF04Z Reposition Left Patella with Internal Fixation Device, Open Approach (ICD-10-PCS; principal; 2022-02-26 17:35)
PROC: 30233N1 Transfusion of Nonautologous Red Blood Cells into Peripheral Vein, Percutaneous Approach (ICD-10-PCS; 2022-02-26 17:35)
DX: S82.032A Displaced transverse fracture of left patella, initial encounter for closed fracture (principal); I21.A1 Myocardial infarction type 2; Z20.822 Contact with and (suspected) exposure to COVID-19; K74.60 Unspecified cirrhosis of liver; D69.6 Thrombocytopenia, unspecified; W18.39XA Other fall on same level, initial encounter; B19.20 Unspecified viral hepatitis C without hepatic coma; D64.9 Anemia, unspecified; K21.9 Gastro-esophageal reflux disease without esophagitis; Z91.81 History of falling; Z86.16 Personal history of COVID-19; Z74.01 Bed confinement status; Y93.89 Activity, other specified; Y92.89 Other specified places as the place of occurrence of the external cause; Y99.8 Other external cause status
CPT/HCPCS: 36415; 71045; 71270; 73560; 80048; 80053; 81001; 82607; 82728; 82746; 83540; 83550; 83690; 83735; 83880; 84100; 84443; 84484; 85025; 85027; 85045; 85378; 85610; 85730; 86850; 86900; 86901; 86923; 87635; 93005; 93306; 93971; 97039; G0378; J0330; J0690; J1100; J1200; J1885; J2001; J2250; J2405; J2704; J2710; J2795; J3010; J3475; J3490; J7030; P9034; Q0163; Q9967

== ENCOUNTER 2022-04-16 11:10 | Emergency (ER) | payer OTHER ==
[~2022-04-16] VITALS: Ht 162.6 cm; Wt 61.2 kg
[~2022-04-16 11:10] MED LIST changes: +ASPI-1005 PO; +ATOR40TA69 PO; +FAMO20TA8 PO; +HYDR28.32 TP; -IBUP-1493 PO; +METO25TA3 PO; -PANT40TA54 PO; -THIA100T75 PO
[2022-04-16 11:12] VITALS: BP 128/76
== END 2022-04-16 12:51 | disposition left against medical advice (07) ==
LOC: EDH 11:10
DX: R10.9 Unspecified abdominal pain (principal); Z53.21 Procedure and treatment not carried out due to patient leaving prior to being seen by health care provider
CPT/HCPCS: 93005

== ENCOUNTER 2022-07-03 14:30 | Inpatient (IN) | payer OTHER ==
[~2022-07-03] VITALS: Ht 154.9 cm; Wt 55.8 kg
[2022-07-03] MEDS ORDERED: 0.9%NACL 1000ML 1,000 ML IV ONE (16:00)
[2022-07-03 16:29] LABS: BASOPHILS % (AUTO) 0.8 % (0.0-5.0); EOSINOPHILS % (AUTO) 0.8 % (0.0-8.0); HEMATOCRIT 25.1 % (36-48); LYMPHOCYTES % (AUTO) 25.5 % (21.0-51.0); MEAN CORPUSCULAR HEMOGLOBIN 32.1 pg (27.0-33.0); MEAN CORPUSCULAR HGB CONC 33.9 g/dL (32.0-36.0); MEAN CORPUSCULAR VOLUME 94.7 fL (79-99); MONOCYTES % (AUTO) 7.8 % (3.0-13.0); NEUTROPHILS % (AUTO) 64.8 % (40.0-77.0); PLATELET COUNT (AUTO) 72 K/uL (130-400); RED BLOOD CELL COUNT(AUTO) 2.65 MIL/uL (4.00-5.50); RED CELL DISTRIBUTION WIDTH 18.2 % (11.0-15.5); WHITE BLOOD COUNT (AUTO) 3.8 K/uL (4.8-10.8)
[2022-07-03] MEDS ORDERED: OCTREOTIDE ACETATE 100 MCG/ML AMP IV SCH (16:30)
[2022-07-03] MEDS ORDERED: OCTREOTIDE ACETATE 1,250 MCG in 0.9% NACL 250ML 250 ML IV SCH ×2 (16:30→22:00)
[2022-07-03] MEDS ORDERED: PANTOPRAZOLE 40 MG/VIAL IVP ONE (16:30)
[2022-07-03] MEDS ORDERED: ONDANSETRON 4MG INJ IVP ONE (16:30)
[2022-07-03 16:37] LABS: CREATININE 0.5 mg/dL (0.5-1.5); POTASSIUM 3.9 mmol/L (3.5-5.1)
[2022-07-03 16:43] LABS: ALBUMIN 2.6 g/dL (3.5-5.0); TOTAL PROTEIN, SERUM 5.9 g/dL (6.0-8.3)
[2022-07-03] MEDS: PANTOPRAZOLE 40MG INJ 80 MG in 0.9%NACL 100ML 100 ML IVP SCH (17:04)
[2022-07-03] MEDS ORDERED: IOHEXOL 350 MG/ML 100ML INFUS..BTL IV ONE (17:57)
[2022-07-03] MEDS ORDERED: ASPIRIN 81MG CHEW TAB PO ONE (22:00)
[2022-07-03] MEDS ORDERED: NITROGLYCERIN 0.4 MG SL TAB SL PRN (22:00)
[2022-07-03] MEDS: LACTATED RINGERS 1000ML 1,000 ML IV SCH (22:06)
[2022-07-04] VITALS (9 sets, daily range): BP systolic 109–143; BP diastolic 47–75
[2022-07-04] MEDS: PANTOPRAZOLE 40MG INJ 80 MG in 0.9%NACL 100ML 100 ML IVP SCH ×3 (02:18→22:30)
[2022-07-04 06:53] LABS: APPEARANCE,URINE CLEAR (CLEAR); BILIRUBIN,URINE NEGATIVE (NEGATIVE); COLOR,URINE YELLOW (YELLOW); GLUCOSE, URINE (UA) NEGATIVE (NEGATIVE); KETONES,URINE NEGATIVE (NEGATIVE); LEUKOCYTE ESTERASE ,URINE NEGATIVE Leu/uL (NEGATIVE); NITRATE,URINE NEGATIVE (NEGATIVE); OCCULT BLOOD,URINE NEGATIVE (NEGATIVE); PROTEIN,URINE NEGATIVE (NEGATIVE); UROBILINOGEN,URINE 0.2 mg/dL (0.2-1.0)
[2022-07-04 07:05] LABS: SQUAMOUS EPITHELIAL CELL,UR FEW /HPF (0-2)
[2022-07-04 07:12] LABS: CREATININE 0.7 mg/dL (0.5-1.5); MAGNESIUM 1.8 mg/dL (1.80-2.40); PHOSPHORUS 3.3 mg/dL (2.5-4.9); POTASSIUM 3.6 mmol/L (3.5-5.1)
[2022-07-04 07:35] LABS: BASOPHILS % (AUTO) 1.2 % (0.0-5.0); EOSINOPHILS % (AUTO) 6.3 % (0.0-8.0); LYMPHOCYTES % (AUTO) 36.5 % (21.0-51.0); MEAN CORPUSCULAR HEMOGLOBIN 32.2 pg (27.0-33.0); MEAN CORPUSCULAR VOLUME 97.6 fL (79-99); MONOCYTES % (AUTO) 10.7 % (3.0-13.0); NEUTROPHILS % (AUTO) 44.9 % (40.0-77.0); PLATELET COUNT (AUTO) 53 K/uL (130-400); RED BLOOD CELL COUNT(AUTO) 2.08 MIL/uL (4.00-5.50); RED CELL DISTRIBUTION WIDTH 18.4 % (11.0-15.5); WHITE BLOOD COUNT (AUTO) 2.5 K/uL (4.8-10.8)
[2022-07-04 07:59] LABS: % IRON SATURATION 11.2 % (22-44)
[2022-07-04 08:05] LABS: INR 1.41 (0.85-1.15); PROTHROMBIN TIME 15.1 SEC (9.6-11.6)
[2022-07-04 08:06] LABS: PARTIAL THROMBOPLASTIN TIME 29.9 SEC (26.3-35.5)
[2022-07-04 08:12] LABS: HEMATOCRIT 20.3 % (36-48)
[2022-07-04 08:36] LABS: CREATININE 0.7 mg/dL (0.5-1.5); EOSINOPHILS % (MANUAL) 6 % (1-6); LYMPHOCYTES % (MANUAL) 44 % (22-44); MAN.DIFF COMMENT-IMPRESSION MANUAL DIFFERENTIAL; MONOCYTES % (MANUAL) 3 % (2-9); POTASSIUM 3.6 mmol/L (3.5-5.1); SEGMENTED NEUTROPHILS % 47 % (40-70)
[2022-07-04 08:37] LABS: PLATELET MORPHOLOGY COMMENT MARKED DECREASE
[2022-07-04] MEDS: ASPIRIN 81MG CHEW TAB PO SCH (08:37)
[2022-07-04 08:41] LABS: ALBUMIN 2.2 g/dL (3.5-5.0)
[2022-07-04] MEDS ORDERED: PANTOPRAZOLE 40MG INJ 80 MG in 0.9%NACL 100ML 100 ML IV SCH (09:00)
[2022-07-04] MEDS ORDERED: COMPOUND IV REFRIGERATED 1 EACH IVSOLN MISC PRN (12:00)
[2022-07-04 15:12] LABS: HEMATOCRIT 25.3 % (36-48)
[2022-07-04 18:17] LABS: HEMATOCRIT 24.6 % (36-48)
[2022-07-04] MEDS: LACTATED RINGERS 1000ML 1,000 ML IV SCH (22:30)
[2022-07-05 00:33] LABS: HEMATOCRIT 23.8 % (36-48)
[2022-07-05 03:13] VITALS: BP 130/72
[2022-07-05] MEDS: PANTOPRAZOLE 40MG INJ 80 MG in 0.9%NACL 100ML 100 ML IVP SCH ×3 (06:33→23:39)
[2022-07-05 06:35] LABS: HEMATOCRIT 23.3 % (36-48)
[2022-07-05 08:20] VITALS: BP 135/71
[2022-07-05] MEDS: ASPIRIN 81MG CHEW TAB PO SCH (08:42)
[2022-07-05] MEDS: MORPHINE 4 MG SYG IV PRN ×2 (11:34→18:13)
[2022-07-05 12:30] VITALS: BP 119/63
[2022-07-05 16:20] VITALS: BP 131/74
[2022-07-05 18:00] LABS: HEMATOCRIT 26.3 % (36-48)
[2022-07-05 19:06] VITALS: BP 135/75
[2022-07-05 21:08] LABS: HEMATOCRIT 26.2 % (36-48)
[2022-07-05 23:22] VITALS: BP 143/73
[2022-07-06] VITALS (24 sets, daily range): BP systolic 109–148; BP diastolic 22–86
[2022-07-06 00:35] LABS: HEMATOCRIT 24.7 % (36-48)
[2022-07-06] MEDS: PANTOPRAZOLE 40MG INJ 80 MG in 0.9%NACL 100ML 100 ML IVP SCH (03:05)
[2022-07-06 06:22] LABS: HEMATOCRIT 25.7 % (36-48)
[2022-07-06] MEDS: MORPHINE 2 MG SYG IV PRN ×2 (08:40→20:46)
[2022-07-06] MEDS: ASPIRIN 81MG CHEW TAB PO SCH (08:44)
[2022-07-06 09:19] LABS: HEMATOCRIT 25.8 % (36-48)
[2022-07-06] MEDS ORDERED: 0.9%NACL 1000ML 1,000 ML IV ONE (11:58)
[2022-07-06] MEDS ORDERED: PROPOFOL 10 MG/ML 20ML VIAL IV ONE (13:23)
[2022-07-06] MEDS ORDERED: EPHEDRINE SULFATE 50 MG/ML AMPULE ONE (13:34)
[2022-07-06 15:38] LABS: HEMATOCRIT 30.3 % (36-48)
[2022-07-06 18:02] LABS: HEMATOCRIT 28.7 % (36-48)
[2022-07-06] MEDS: PANTOPRAZOLE 40 MG TAB DR PO SCH (20:40)
[2022-07-07 03:13] VITALS: BP 113/70
[2022-07-07 03:49] LABS: BASOPHILS % (AUTO) 0.7 % (0.0-5.0); EOSINOPHILS % (AUTO) 7.4 % (0.0-8.0); HEMATOCRIT 25.4 % (36-48); LYMPHOCYTES % (AUTO) 30.1 % (21.0-51.0); MEAN CORPUSCULAR HEMOGLOBIN 31.2 pg (27.0-33.0); MEAN CORPUSCULAR HGB CONC 34.3 g/dL (32.0-36.0); MONOCYTES % (AUTO) 8.5 % (3.0-13.0); NEUTROPHILS % (AUTO) 52.9 % (40.0-77.0); PLATELET COUNT (AUTO) 58 K/uL (130-400); RED BLOOD CELL COUNT(AUTO) 2.79 MIL/uL (4.00-5.50); RED CELL DISTRIBUTION WIDTH 21.4 % (11.0-15.5); WHITE BLOOD COUNT (AUTO) 2.7 K/uL (4.8-10.8)
[2022-07-07 04:11] LABS: ALANINE AMINOTRANSFERASE 97 U/L (12-78); ALBUMIN 2.6 g/dL (3.5-5.0); ASPARTATE AMINOTRANSFERASE 93 U/L (10-37); CARBON DIOXIDE 26 mmol/L (21-32); CHLORIDE 105 mmol/L (101-111); CREATININE 0.7 mg/dL (0.5-1.5); GLOMERULAR FILTR. RATE CALC 90 mL/min (>60); GLUCOSE,RANDOM 100 mg/dL (70-105); POTASSIUM 3.1 mmol/L (3.5-5.1); SODIUM SERUM 138 mmol/L (136-145); TOTAL PROTEIN, SERUM 5.8 g/dL (6.0-8.3); UREA NITROGEN, BLOOD 7 mg/dL (7-18)
[2022-07-07 04:12] LABS: CRP QUANTITATIVE < 2.00 mg/L (0.00-9.0)
[2022-07-07 04:37] LABS: EOSINOPHILS % (MANUAL) 2 % (1-6); LYMPHOCYTES % (MANUAL) 22 % (22-44); MAN.DIFF COMMENT-IMPRESSION MANUAL DIFFERENTIAL; MONOCYTES % (MANUAL) 7 % (2-9); REACTIVE LYMPHOCYTES 2 % (0-0); SEGMENTED NEUTROPHILS % 67 % (40-70)
[2022-07-07 06:01] LABS: ERYTHROCYTE SEDIMENTATION RATE 8 MM/HR (0-30)
[2022-07-07 06:53] LABS: MAGNESIUM 1.8 mg/dL (1.80-2.40); POTASSIUM 3.2 mmol/L (3.5-5.1)
[2022-07-07] MEDS ORDERED: PANT40TA55 PO (07:21)
[2022-07-07] MEDS ORDERED: MAGNESIUM 2GM PREMIX 50ML 50 ML IV PRN (08:00)
[2022-07-07] MEDS ORDERED: POTASSIUM CHLORIDE 20MEQ/100ML 100 ML IV PRN (08:00)
[2022-07-07] MEDS ORDERED: LIDOCAINE HCL-MPF 1% 2ML VIAL IV PRN (08:00)
[2022-07-07] MEDS ORDERED: POTASSIUM CHLORIDE 10% ELIXIR 20 MEQ/15 ML UDCUP PO PRN (08:00)
[2022-07-07 08:39] VITALS: BP 112/60
[2022-07-07] MEDS: PANTOPRAZOLE 40 MG TAB DR PO SCH (09:08)
[2022-07-07] MEDS: ASPIRIN 81MG CHEW TAB PO SCH (09:08)
[2022-07-07] MEDS: KCL 20 MEQ ERTAB PO PRN ×2 (09:12→09:13)
== END 2022-07-07 11:35 | disposition home or self-care (01) | DRG 377 ==
LOC: EDH 14:30 → EDHIP 14:31 → 2AH 07-04 09:15
PROVIDERS: ADMIT Hospitalist; ATTEND Hospitalist
PROC: 30233N1 Transfusion of Nonautologous Red Blood Cells into Peripheral Vein, Percutaneous Approach (ICD-10-PCS; principal; 2022-07-04)
PROC: 0DJ08ZZ Inspection of Upper Intestinal Tract, Via Natural or Artificial Opening Endoscopic (ICD-10-PCS; 2022-07-06)
DX: K92.2 Gastrointestinal hemorrhage, unspecified (principal); I21.A1 Myocardial infarction type 2; D61.818 Other pancytopenia; D62 Acute posthemorrhagic anemia; K76.6 Portal hypertension; Z20.822 Contact with and (suspected) exposure to COVID-19; K74.60 Unspecified cirrhosis of liver; B19.20 Unspecified viral hepatitis C without hepatic coma; Z59.7 Insufficient social insurance and welfare support; Z79.82 Long term (current) use of aspirin
CPT/HCPCS: 36415; 36430; 43235; 74177; 80048; 80053; 81001; 82270; 82728; 83540; 83550; 83735; 84100; 84132; 84145; 84484; 85014; 85018; 85025; 85610; 85651; 85730; 86140; 86850; 86900; 86901; 86923; 87635; 93005; A4606; C9113; G0378; J2270; J2354; J2405; J2704; J3475; J3490; J7030; J7050; J7120; P9016; Q9967

== ENCOUNTER 2022-09-06 14:48 | Observation (INO) | payer OTHER ==
[~2022-09-06] VITALS: Ht 154.9 cm; Wt 58.8 kg
[~2022-09-06 14:48] MED LIST changes: -ATOR40TA69 PO; -FAMO20TA8 PO; -METO25TA3 PO; +PANT40TA55 PO
[2022-09-06 15:41] LABS: BASOPHILS % (AUTO) 0.7 % (0.0-5.0); EOSINOPHILS % (AUTO) 1.2 % (0.0-8.0); HEMATOCRIT 30.9 % (36-48); LYMPHOCYTES % (AUTO) 29.4 % (21.0-51.0); MEAN CORPUSCULAR HEMOGLOBIN 32.1 pg (27.0-33.0); MONOCYTES % (AUTO) 6.8 % (3.0-13.0); NEUTROPHILS % (AUTO) 61.7 % (40.0-77.0); PLATELET COUNT (AUTO) 73 K/uL (130-400); RED BLOOD CELL COUNT(AUTO) 3.36 MIL/uL (4.00-5.50); RED CELL DISTRIBUTION WIDTH 14.6 % (11.0-15.5); WHITE BLOOD COUNT (AUTO) 4.3 K/uL (4.8-10.8)
[2022-09-06 15:44] LABS: CREATININE 0.6 mg/dL (0.5-1.5); POTASSIUM 3.8 mmol/L (3.5-5.1)
[2022-09-06 15:53] LABS: ALBUMIN 3.1 g/dL (3.5-5.0); TOTAL PROTEIN, SERUM 6.8 g/dL (6.0-8.3)
[2022-09-06] MEDS ORDERED: PANTOPRAZOLE 40 MG/VIAL IVP ONE (17:00)
[2022-09-06] MEDS ORDERED: ASPIRIN 81MG CHEW TAB PO ONE (17:00)
[2022-09-06 17:19] LABS: APPEARANCE,URINE CLEAR (CLEAR); BILIRUBIN,URINE NEGATIVE (NEGATIVE); COLOR,URINE YELLOW (YELLOW); GLUCOSE, URINE (UA) NEGATIVE (NEGATIVE); KETONES,URINE 10 mg/dL (NEGATIVE); LEUKOCYTE ESTERASE ,URINE 75 Leu/uL (NEGATIVE); NITRATE,URINE NEGATIVE (NEGATIVE); OCCULT BLOOD,URINE NEGATIVE (NEGATIVE); PROTEIN,URINE 20 mg/dL (NEGATIVE)
[2022-09-06 17:26] LABS: BACTERIA,URINE RARE /HPF (None Seen); MUCUS,URINE FEW LPF (None Seen); SQUAMOUS EPITHELIAL CELL,UR MOD /HPF (0-2); YEAST,URINE BUDDING RARE /HPF (None Seen)
[2022-09-06] MEDS ORDERED: LACTATED RINGERS 1000ML 500 ML IV ONE (20:30)
[2022-09-06 21:17] LABS: THYROID STIMULATING HORMONE 0.24 uIU/mL (0.36-3.74)
[2022-09-06] MEDS: PANTOPRAZOLE 40 MG/VIAL IVP SCH (21:37)
[2022-09-06 23:25] VITALS: BP 120/70
[2022-09-07 03:08] LABS: BASOPHILS % (AUTO) 0.5 % (0.0-5.0); EOSINOPHILS % (AUTO) 2.6 % (0.0-8.0); HEMATOCRIT 26.6 % (36-48); LYMPHOCYTES % (AUTO) 41.6 % (21.0-51.0); MEAN CORPUSCULAR HEMOGLOBIN 31.4 pg (27.0-33.0); MEAN CORPUSCULAR HGB CONC 33.8 g/dL (32.0-36.0); MEAN CORPUSCULAR VOLUME 92.7 fL (79-99); MONOCYTES % (AUTO) 8.2 % (3.0-13.0); PLATELET COUNT (AUTO) 60 K/uL (130-400); RED BLOOD CELL COUNT(AUTO) 2.87 MIL/uL (4.00-5.50); WHITE BLOOD COUNT (AUTO) 3.8 K/uL (4.8-10.8)
[2022-09-07 03:09] LABS: CREATININE 0.6 mg/dL (0.5-1.5); POTASSIUM 3.1 mmol/L (3.5-5.1)
[2022-09-07 04:06] VITALS: BP 115/57
[2022-09-07] MEDS: KCL 20 MEQ ERTAB PO PRN ×2 (04:23→09:13)
[2022-09-07] MEDS ORDERED: POTASSIUM CHLORIDE 10% ELIXIR 20 MEQ/15 ML UDCUP PO PRN (04:30)
[2022-09-07] MEDS ORDERED: POTASSIUM CHLORIDE 10MEQ/100ML 100 ML IV PRN (04:30)
[2022-09-07] MEDS: PANTOPRAZOLE 40 MG/VIAL IVP SCH (09:13)
[2022-09-07 09:17] VITALS: BP 119/75
[2022-09-07] MEDS ORDERED: PANT40TA55 PO (11:37)
[2022-09-07 12:31] VITALS: BP 106/62
== END 2022-09-07 13:15 | disposition still patient (30) ==
LOC: EDH 14:48 → INTOOBSV 14:49 → EDHIP 14:49 → 3CH 23:30
PROVIDERS: ADMIT Internal Medicine; ATTEND Internal Medicine
DX: R10.13 Epigastric pain (principal); R11.2 Nausea with vomiting, unspecified; R77.8 Other specified abnormalities of plasma proteins; D69.6 Thrombocytopenia, unspecified; D72.819 Decreased white blood cell count, unspecified; I21.4 Non-ST elevation (NSTEMI) myocardial infarction; K74.60 Unspecified cirrhosis of liver; R94.31 Abnormal electrocardiogram [ECG] [EKG]; Z86.19 Personal history of other infectious and parasitic diseases; Z79.899 Other long term (current) drug therapy; Z98.890 Other specified postprocedural states; Z98.891 History of uterine scar from previous surgery
CPT/HCPCS: 96374; 96376 ×2; 96361 ×2; 99285; 84443; 82550; 84484 ×4; 80053; 83690; 85025 ×2; 87088; 81001; 36415 ×2; 71045; 74176; 93005 ×2; 80048; G0378 ×20; J7120; C9113 ×3

== ENCOUNTER 2022-12-27 15:10 | Inpatient (IN) | payer OTHER ==
[~2022-12-27] VITALS: Ht 154.9 cm; Wt 60.8 kg
[~2022-12-27 15:10] MED LIST changes: -ASPI-1005 PO; -CYAN-35 PO; -FERR324T4 PO; -FOLI0.4T6 PO; -HYDR28.32 TP
[2022-12-27 16:01] LABS: MEAN CORPUSCULAR HEMOGLOBIN 22.9 pg (27.0-33.0); MEAN CORPUSCULAR HGB CONC 27.4 g/dL (32.0-36.0); MEAN CORPUSCULAR VOLUME 83.5 fL (79-99); PLATELET COUNT (AUTO) 101 K/uL (130-400); RED BLOOD CELL COUNT(AUTO) 1.88 MIL/uL (4.00-5.50); RED CELL DISTRIBUTION WIDTH 18.2 % (11.0-15.5); WHITE BLOOD COUNT (AUTO) 2.9 K/uL (4.8-10.8)
[2022-12-27 16:09] LABS: HEMATOCRIT 15.7 % (36-48)
[2022-12-27 16:11] LABS: CREATININE 0.8 mg/dL (0.5-1.5); POTASSIUM 3.4 mmol/L (3.5-5.1)
[2022-12-27 16:18] LABS: ALBUMIN 2.6 g/dL (3.5-5.0); BILIRUBIN,TOTAL 1.4 mg/dL (0.2-1.0); MAGNESIUM 1.8 mg/dL (1.80-2.40)
[2022-12-27 16:29] LABS: SARS-CoV-2, RNA, NAAT NEGATIVE SARS CoV-2 (NEGATIVE)
[2022-12-27 16:34] LABS: INFLUENZA TYPE A Negative For Type A (NEGATIVE); INFLUENZA TYPE B Negative For Type B (NEGATIVE)
[2022-12-27 17:04] LABS: BASOPHILS % (MANUAL) 2 % (0-2); EOSINOPHILS % (MANUAL) 1 % (1-6); LYMPHOCYTES % (MANUAL) 36 % (22-44); MONOCYTES % (MANUAL) 7 % (2-9); SEGMENTED NEUTROPHILS % 54 % (40-70); TOTAL CELLS COUNTED 100
[2022-12-27 17:08] LABS: MAN.DIFF COMMENT-IMPRESSION MANUAL DIFFERENTIAL; PLATELET MORPHOLOGY COMMENT SLIGHTLY DECREASED; WBC MORPHOLOGY SMUDGE CELLS 1+
[2022-12-27] MEDS ORDERED: PANTOPRAZOLE 40 MG/VIAL IVP ONE (17:30)
[2022-12-27] MEDS ORDERED: OCTREOTIDE ACETATE 100 MCG/ML AMP IV ONE (17:30)
[2022-12-27 17:33] LABS: APPEARANCE,URINE CLEAR (CLEAR); BILIRUBIN,URINE NEGATIVE (NEGATIVE); COLOR,URINE LIGHT-YELLOW (YELLOW); GLUCOSE, URINE (UA) NEGATIVE (NEGATIVE); KETONES,URINE NEGATIVE (NEGATIVE); LEUKOCYTE ESTERASE ,URINE NEGATIVE Leu/uL (NEGATIVE); NITRATE,URINE NEGATIVE (NEGATIVE); OCCULT BLOOD,URINE NEGATIVE (NEGATIVE); PH,URINE 6.5 (5.0-8.0); PROTEIN,URINE NEGATIVE (NEGATIVE); UROBILINOGEN,URINE 0.2 mg/dL (0.2-1.0)
[2022-12-27 17:35] LABS: ADD UA MICROSCOPIC NO
[2022-12-27 18:15] LABS: HEMATOCRIT 13.7 % (36-48)
[2022-12-27 18:24] LABS: RETICULOCYTE % (AUTO) 3.1 % (0.42-2.23)
[2022-12-27 18:40] LABS: % IRON SATURATION 2.7 % (22-44)
[2022-12-27 18:51] LABS: THYROID STIMULATING HORMONE 0.9 uIU/mL (0.36-3.74)
[2022-12-27] MEDS: PANTOPRAZOLE 40MG INJ 80 MG in 0.9%NACL 100ML 100 ML IV SCH (19:51)
[2022-12-27] MEDS: OCTREOTIDE ACETATE 1,250 MCG in 0.9% NACL 250ML 250 ML IV SCH (19:51)
[2022-12-27 20:04] LABS: INR 1.2 (0.85-1.15); PROTHROMBIN TIME 13.8 SEC (9.6-11.6)
[2022-12-27 20:06] LABS: PARTIAL THROMBOPLASTIN TIME 24.3 SEC (26.3-35.5)
[2022-12-28] VITALS (24 sets, daily range): BP systolic 100–136; BP diastolic 48–81; PULSE 62–76; RESP 11–25; TEMP 98.7; O2SAT 97–98
[2022-12-28] MEDS ORDERED: ACETAMINOPHEN 500 MG TABLET PO ONE (01:30)
[2022-12-28 02:04] LABS: HEMATOCRIT 20.4 % (36-48)
[2022-12-28] MEDS: PANTOPRAZOLE 40MG INJ 80 MG in 0.9%NACL 100ML 100 ML IV SCH ×3 (03:16→23:13)
[2022-12-28 08:17] LABS: HEMATOCRIT 21.1 % (36-48); MEAN CORPUSCULAR HEMOGLOBIN 25.8 pg (27.0-33.0); MEAN CORPUSCULAR HGB CONC 30.8 g/dL (32.0-36.0); MEAN CORPUSCULAR VOLUME 83.7 fL (79-99); RED BLOOD CELL COUNT(AUTO) 2.52 MIL/uL (4.00-5.50); RED CELL DISTRIBUTION WIDTH 16.6 % (11.0-15.5); WHITE BLOOD COUNT (AUTO) 2.1 K/uL (4.8-10.8)
[2022-12-28 08:29] LABS: ALBUMIN 2.2 g/dL (3.5-5.0); BILIRUBIN,TOTAL 4.2 mg/dL (0.2-1.0); CREATININE 0.8 mg/dL (0.5-1.5); MAGNESIUM 1.8 mg/dL (1.80-2.40); TOTAL PROTEIN, SERUM 5.1 g/dL (6.0-8.3)
[2022-12-28] MEDS ORDERED: ACETAMINOPHEN 325 MG TAB ONE (08:46)
[2022-12-28] MEDS ORDERED: POTASSIUM CHLORIDE 10% ELIXIR 20 MEQ/15 ML UDCUP PO PRN (10:00)
[2022-12-28] MEDS ORDERED: POTASSIUM CHLORIDE 20MEQ/100ML 100 ML IV PRN (10:00)
[2022-12-28] MEDS ORDERED: DiphenhydrAMINE HCL 50 MG/ML VIAL IV ONE (10:00)
[2022-12-28] MEDS ORDERED: MAGNESIUM 2GM PREMIX 50ML 50 ML IV PRN (10:00)
[2022-12-28] MEDS ORDERED: ACETAMINOPHEN 325 MG TAB PO PRN (10:00)
[2022-12-28] MEDS ORDERED: COMPOUND IV REFRIGERATED 1 EACH IVSOLN MISC PRN (12:30)
[2022-12-28] MEDS ORDERED: COMPOUND IV MISC 1 EACH IVSOLN MISC PRN (12:30)
[2022-12-28] MEDS ORDERED: KETAMINE 50MG/ML SYRINGE 50 MG/ML DISP.SYRIN ONE (12:58)
[2022-12-28] MEDS ORDERED: MIDAZOLAM HCL 1 MG/ML 2ML VIAL ONE (13:00)
[2022-12-28] MEDS ORDERED: PROPOFOL 10 MG/ML 20ML VIAL IV ONE (13:00)
[2022-12-28] MEDS ORDERED: LIDOCAINE PF 100MG/5ML (2%) SYRINGE 5ML ONE (13:01)
[2022-12-28 15:25] LABS: HEMATOCRIT 23.1 % (36-48)
[2022-12-28 18:00] LABS: HEMATOCRIT 25.1 % (36-48)
[2022-12-28] MEDS ORDERED: PEG 3350/NA SULF,BICARB,CL/KCL 4000 ML SOLN PO ONE (21:00)
[2022-12-28] MEDS: LACTULOSE 20 GM/30 ML UDCUP PO SCH (21:00)
[2022-12-28] MEDS: ACETAMINOPHEN 325 MG TAB PO PRN (23:13)
[2022-12-29] VITALS (9 sets, daily range): BP systolic 125–141; BP diastolic 69–76; PULSE 60–76; RESP 18–20; O2SAT 95–98
[2022-12-29 01:03] LABS: HEMATOCRIT 24.6 % (36-48)
[2022-12-29] MEDS: ACETAMINOPHEN 325 MG TAB PO PRN ×2 (04:26→16:49)
[2022-12-29 08:20] LABS: BASOPHILS # (AUTO) 0.03 K/uL (0.00-0.20); BASOPHILS % (AUTO) 1.1 % (0.0-5.0); EOSINOPHILS # (AUTO) 0.12 K/uL (0.00-0.70); EOSINOPHILS % (AUTO) 4.3 % (0.0-8.0); HEMATOCRIT 26.8 % (36-48); IMMATURE GRANULOCYTE ABSOLUTE 0.01 K/uL (0-1); LYMPHOCYTES # (AUTO) 0.8 K/uL (1.0-4.8); LYMPHOCYTES % (AUTO) 28.3 % (21.0-51.0); MEAN CORPUSCULAR HEMOGLOBIN 25.8 pg (27.0-33.0); MEAN CORPUSCULAR VOLUME 83.2 fL (79-99); MONOCYTES # (AUTO) 0.2 K/uL (0.1-1.0); MONOCYTES % (AUTO) 7.9 % (3.0-13.0); NEUTROPHILS # (AUTO) 1.6 K/uL (1.8-7.7); PLATELET COUNT (AUTO) 71 K/uL (130-400); RED BLOOD CELL COUNT(AUTO) 3.22 MIL/uL (4.00-5.50); RED CELL DISTRIBUTION WIDTH 16.6 % (11.0-15.5); WHITE BLOOD COUNT (AUTO) 2.8 K/uL (4.8-10.8)
[2022-12-29] MEDS: IRON SUCROSE COMPLEX 300 MG in 0.9% NACL 250ML 250 ML IV SCH (08:34)
[2022-12-29] MEDS: PANTOPRAZOLE 40MG INJ 80 MG in 0.9%NACL 100ML 100 ML IV SCH ×2 (08:34→19:30)
[2022-12-29] MEDS: LACTULOSE 20 GM/30 ML UDCUP PO SCH ×2 (08:35→20:11)
[2022-12-29 08:59] LABS: ALBUMIN 2.8 g/dL (3.5-5.0); CREATININE 0.8 mg/dL (0.5-1.5); POTASSIUM 3.7 mmol/L (3.5-5.1)
[2022-12-29 09:32] LABS: BASOPHILS % (MANUAL) 1 % (0-2); EOSINOPHILS % (MANUAL) 7 % (1-6); LYMPHOCYTES % (MANUAL) 16 % (22-44); MAN.DIFF COMMENT-IMPRESSION MANUAL DIFFERENTIAL; MONOCYTES % (MANUAL) 4 % (2-9); PLATELET MORPHOLOGY COMMENT DECREASED; SEGMENTED NEUTROPHILS % 72 % (40-70); TOTAL CELLS COUNTED 100
[2022-12-29] MEDS ORDERED: PEG 3350/NA SULF,BICARB,CL/KCL 4000 ML SOLN PO ONE (17:00)
[2022-12-29] MEDS: OCTREOTIDE ACETATE 1,250 MCG in 0.9% NACL 250ML 250 ML IV SCH (20:57)
[2022-12-30] VITALS (9 sets, daily range): BP systolic 96–141; BP diastolic 61–69; PULSE 62–70; RESP 12–18
[2022-12-30] MEDS: PANTOPRAZOLE 40MG INJ 80 MG in 0.9%NACL 100ML 100 ML IV SCH (03:34)
[2022-12-30] MEDS ORDERED: PROPOFOL 10 MG/ML 20ML VIAL IV ONE ×2 (07:45)
[2022-12-30] MEDS: IRON SUCROSE COMPLEX 300 MG in 0.9% NACL 250ML 250 ML IV SCH (09:00)
[2022-12-30] MEDS: LACTULOSE 20 GM/30 ML UDCUP PO SCH ×2 (09:00→21:00)
[2022-12-31 00:35] LABS: ALBUMIN 2.4 g/dL (3.5-5.0); BILIRUBIN,TOTAL 2.1 mg/dL (0.2-1.0); CREATININE 0.7 mg/dL (0.5-1.5); POTASSIUM 3.4 mmol/L (3.5-5.1); TOTAL PROTEIN, SERUM 5.2 g/dL (6.0-8.3)
[2022-12-31 00:42] VITALS: BP 139/75; PULSE 70; RESP 18
[2022-12-31 01:49] VITALS: O2SAT 98
[2022-12-31] MEDS: PANTOPRAZOLE 40MG INJ 80 MG in 0.9%NACL 100ML 100 ML IV SCH (02:48)
[2022-12-31 03:03] VITALS: BP 139/68; PULSE 66; RESP 16
[2022-12-31 05:51] LABS: BASOPHILS # (AUTO) 0.02 K/uL (0.00-0.20); BASOPHILS % (AUTO) 0.8 % (0.0-5.0); EOSINOPHILS # (AUTO) 0.05 K/uL (0.00-0.70); HEMATOCRIT 22.9 % (36-48); IMMATURE GRANULOCYTE ABSOLUTE 0.01 K/uL (0-1); LYMPHOCYTES # (AUTO) 0.6 K/uL (1.0-4.8); LYMPHOCYTES % (AUTO) 23.8 % (21.0-51.0); MEAN CORPUSCULAR HEMOGLOBIN 26.3 pg (27.0-33.0); MEAN CORPUSCULAR HGB CONC 31.4 g/dL (32.0-36.0); MEAN CORPUSCULAR VOLUME 83.6 fL (79-99); MONOCYTES # (AUTO) 0.3 K/uL (0.1-1.0); MONOCYTES % (AUTO) 9.9 % (3.0-13.0); NEUTROPHILS # (AUTO) 1.6 K/uL (1.8-7.7); NEUTROPHILS % (AUTO) 63.1 % (40.0-77.0); PLATELET COUNT (AUTO) 62 K/uL (130-400); RED BLOOD CELL COUNT(AUTO) 2.74 MIL/uL (4.00-5.50); RED CELL DISTRIBUTION WIDTH 17.2 % (11.0-15.5); WHITE BLOOD COUNT (AUTO) 2.5 K/uL (4.8-10.8)
[2022-12-31 07:00] VITALS: BP 139/62; PULSE 59; RESP 16
[2022-12-31 08:52] LABS: ALBUMIN 2.8 g/dL (3.5-5.0); BILIRUBIN,TOTAL 1.9 mg/dL (0.2-1.0); CREATININE 0.6 mg/dL (0.5-1.5); MAGNESIUM 1.8 mg/dL (1.80-2.40); POTASSIUM 3.3 mmol/L (3.5-5.1)
[2022-12-31] MEDS: LACTULOSE 20 GM/30 ML UDCUP PO SCH (09:00)
[2022-12-31 09:03] LABS: HEMATOCRIT 28.2 % (36-48); MEAN CORPUSCULAR HEMOGLOBIN 26.5 pg (27.0-33.0); MEAN CORPUSCULAR HGB CONC 30.1 g/dL (32.0-36.0); MEAN CORPUSCULAR VOLUME 87.9 fL (79-99); PLATELET COUNT (AUTO) 64 K/uL (130-400); RED BLOOD CELL COUNT(AUTO) 3.21 MIL/uL (4.00-5.50); WHITE BLOOD COUNT (AUTO) 2.5 K/uL (4.8-10.8)
[2022-12-31] MEDS: ACETAMINOPHEN 325 MG TAB PO PRN (09:29)
[2022-12-31 09:31] LABS: BASOPHILS % (MANUAL) 2 % (0-2); EOSINOPHILS % (MANUAL) 2 % (1-6); LYMPHOCYTES % (MANUAL) 32 % (22-44); MAN.DIFF COMMENT-IMPRESSION MANUAL DIFFERENTIAL; MONOCYTES % (MANUAL) 3 % (2-9); PLATELET MORPHOLOGY COMMENT DECREASED; SEGMENTED NEUTROPHILS % 61 % (40-70); TOTAL CELLS COUNTED 100
[2022-12-31] MEDS: KCL 20 MEQ ERTAB PO PRN ×2 (10:52→13:23)
[2022-12-31 11:00] VITALS: BP 130/91; PULSE 69; RESP 16
[2022-12-31 12:12] LABS: HEMATOCRIT 23.9 % (36-48)
[2022-12-31 12:16] LABS: INR 1.4 (0.85-1.15); PARTIAL THROMBOPLASTIN TIME 33.8 SEC (26.3-35.5); PROTHROMBIN TIME 15.9 SEC (9.6-11.6)
== END 2022-12-31 15:15 | disposition home or self-care (01) | DRG 432 ==
LOC: EDH 15:44 → EDHIP 15:45 → 2CV 12-28 05:55 → 2AH 12-28 17:00
PROVIDERS: ADMIT Internal Medicine; ATTEND Internal Medicine
PROC: 30233N1 Transfusion of Nonautologous Red Blood Cells into Peripheral Vein, Percutaneous Approach (ICD-10-PCS; 2022-12-27)
PROC: 0DJ08ZZ Inspection of Upper Intestinal Tract, Via Natural or Artificial Opening Endoscopic (ICD-10-PCS; principal; 2022-12-28)
PROC: 0DJD8ZZ Inspection of Lower Intestinal Tract, Via Natural or Artificial Opening Endoscopic (ICD-10-PCS; 2022-12-30)
DX: K74.60 Unspecified cirrhosis of liver (principal); R65.11 Systemic inflammatory response syndrome (SIRS) of non-infectious origin with acute organ dysfunction; D61.818 Other pancytopenia; Z20.822 Contact with and (suspected) exposure to COVID-19; E87.20 Acidosis, unspecified; I85.10 Secondary esophageal varices without bleeding; R18.8 Other ascites; K64.8 Other hemorrhoids; K57.30 Diverticulosis of large intestine without perforation or abscess without bleeding; B19.20 Unspecified viral hepatitis C without hepatic coma; R16.1 Splenomegaly, not elsewhere classified; I10 Essential (primary) hypertension
CPT/HCPCS: 36415; 43235; 45378; 71045; 74176; 80053; 81003; 82140; 82270; 82607; 82728; 83605; 83735; 83880; 84443; 85007; 85014; 85018; 85025; 85027; 85610; 85730; 86078; 86701; 86850; 86900; 86901; 86923; 87040; 87390; 87635; 87804; 93005; A4606; C9113; C9803; G0378; J1200; J1756; J2001; J2250; J2354; J2704; J3475; J7030; J7050; P9016; A4215; A4216; A4221; A4222; A4223; A4620; A4657; A7002; J3490

== ENCOUNTER 2025-02-26 13:23 | Inpatient (IN) | payer MEDICARE, MEDICAID ==
[~2025-02-26] VITALS: Ht 154.9 cm; Wt 65.9 kg
--- NOTE | 2025-02-26 13:48 | ERN ---
General Chief Complaint: Hematemesis/Vomiting Blood Stated Complaint: BLOODY EMESIS AND DARK TARRY STOOLS Time Seen by MD: 13:25 Source: patient History of Present Illness Initial Comments Patient is a 64-year-old female coming in complaining of bloody emesis. Per patient she has had multiple episodes in the morning. Patient does has a history of liver cirrhosis. Allergies: Coded Allergies: pollen extracts (Unverified Allergy, Unknown, 02/07/21) POLLEN Home Meds Active Scripts Pantoprazole Sodium (Protonix) 40 Mg Ectab, 40 MG PO BID for 30 Days, #60 TAB.EC 1 Refill Prov:TRISTAN AGUILAR MD 09/07/22 Past Medical History Past Medical History: Anemia, Anxiety, Hypertension, Liver Disease Medical History Other: HEP C, STOMACH LINING PROB Past Surgical History: Other, Surgical History Other: KNEE CAP Family History Family History: Negative Social History Social History: Negative ROS Dictation CONSTITUTIONAL: No chills, no fever, no weakness, no diaphoresis, no malaise. HEAD/FACE: No signs of trauma. EENT: No eye pain, no blurred vision, no tearing, no double vision, no ear pain, no ear discharge, no nose pain, no nasal congestion, no throat pain, no throat swelling, no mouth pain. RESPIRATORY: No cough, no orthopnea, SOB, no stridor, no wheezing. CARDIOVASCULAR: No chest pain, no edema, no palpitations, no syncope. GASTROINTESTINAL/ABDOMINAL: No abdominal pain, no constipation, no diarrhea, no nausea, no vomiting. GENITOURINARY: No abnormal discharge, no dysuria, no frequent urination, no hematuria. No complaints of pain in the genitals. MUSCULOSKELETAL: No back pain, no gout, no joint pain, no joint swelling, no muscle pain, no muscle stiffness, no neck pain. INTEGUMENTARY: No change in color, no change in hair/nails, no dryness, no lesion, no lumps, no rash. NEUROLOGICAL/PSYCH: No anxiety, not depressed, no emotional problem, no headache, no numbness, no pre-existing deficit, no history of seizures, no tremors, no weakness. HEMATOLOGIC/LYMPHATIC: Not anemic, no history of blood clots, no apparent bleeding, no bruising, glands not swollen. All Systems Negative, Except as Noted. Physical Exam Physical Exam Dictation VITAL SIGNS: Reviewed. GENERAL APPEARANCE: Alert, oriented x3, no acute distress, obese. HEAD AND FACE: Non-traumatic. EYES: PERRL, pink conjunctivas, eyelid no trauma, anterior chamber clear. EARS: Pinnas intact and no signs of trauma or erythema. Ear canals clear and no discharge. TMs no erythema. NOSE: No discharge, no bleeding. OROPHARYNX: Mouth normal, teeth no caries, tongue pink. Pharynx clear, no erythema. Tonsils no exudates, no abscesses noted. Mucous membrane moist. NECK: Supple, non-tender, no thyromegaly, no masses, no JVD, no bruits. BREAST: Deferred. CHEST: No tenderness, no crepitus, no paradoxical movement, no retractions. LUNGS: Clear, well-ventilated, symmetric, no rales, no wheezing, no rhonchi, no stridor, good breath sounds bilaterally. HEART: Regular rate, regular rhythm, no murmur, no gallops. VASCULAR: No peripheral edema. ABDOMEN: Soft, positive bowel sounds, nondistended, no guarding, nontender, no rebound, no masses no hepatomegaly, no splenomegaly, no Laird's sign, no hernias. RECTAL: Deferred. GENITAL: Deferred. NEUROLOGICAL: Normal speech, gross motor function intact, gross sensory function intact. MUSCULOSKELETAL: Neck nontender, full range of motion, back nontender, full range of motion. EXTREMITIES: Nontender, full range of motion. SKIN: Color pink, dry, no turgor, no rash, no lacerations, no abrasions, no contusions. LYMPHATICS: Deferred. Results Laboratory and Microbiology Lab and Micro Result Laboratory Tests Test 02/26/25 13:43 02/26/25 14:06 White Blood Count 7.5 K/uL (4.8-10.8) Red Blood Count 3.94 MIL/uL (4.00-5.50) L Hemoglobin 12.8 g/dL (12.0-16.0) Hematocrit 37.5 % (36-48) Mean Corpuscular Volume 95.2 fL (79-99) Mean Corpuscular Hemoglobin 32.5 pg (27.0-33.0) Mean Corpuscular Hemoglobin Concent 34.1 g/dL (32.0-36.0) Red Cell Distribution Width 13.8 % (11.0-15.5) Platelet Count 110 K/uL (130-400) L Mean Platelet Volume 10.6 fL (7.5-10.5) H Immature Granulocyte % (Auto) 0.3 % (0-1) Neutrophils (%) (Auto) 75.2 % (40.0-77.0) Lymphocytes (%) (Auto) 16.2 % (21.0-51.0) L Monocytes (%) (Auto) 7.4 % (3.0-13.0) Eosinophils (%) (Auto) 0.4 % (0.0-8.0) Basophils (%) (Auto) 0.5 % (0.0-5.0) Neutrophils # (Auto) 5.6 K/uL (1.8-7.7) Lymphocytes # (Auto) 1.2 K/uL (1.0-4.8) Monocytes # (Auto) 0.6 K/uL (0.1-1.0) Eosinophils # (Auto) 0.03 K/uL (0.00-0.70) Basophils # (Auto) 0.04 K/uL (0.00-0.20) Absolute Immature Granulocyte (auto 0.02 K/uL (0-1) Nucleated Red Blood Cells 0.0 % (0.0-0.19) Sodium Level 143 mmol/L (136-145) Potassium Level 3.8 mmol/L (3.5-5.1) Chloride Level 106 mmol/L (101-111) Carbon Dioxide Level 27 mmol/L (21-32) Blood Urea Nitrogen 34 mg/dL (7-18) H Creatinine 0.6 mg/dL (0.5-1.0) Glomerular Filtration Rate Calc 100 mL/min (>90) Random Glucose 134 mg/dL (70-105) H Total Calcium 8.7 mg/dL (8.5-10.1) Total Creatine Kinase 93 U/L (21-232) Troponin I High Sensitivity 147 ng/L (4-50) *H Urine Color YELLOW (YELLOW) Urine Appearance CLEAR (CLEAR) Urine pH 6.0 (5.0-8.0) Urine Specific [place] 1.029 (1.001-1.031) Urine Protein 10 mg/dL (NEGATIVE) H Urine Glucose (UA) NEGATIVE mg/dL (NEGATIVE) Urine Ketones NEGATIVE mg/dL (NEGATIVE) Urine Occult Blood NEGATIVE (NEGATIVE) Urine Nitrate NEGATIVE (NEGATIVE) Urine Bilirubin NEGATIVE mg/dL (NEGATIVE) Urine Urobilinogen 2.0 mg/dL (0.2-1.0) H Urine Leukocyte Esterase 75 Vee/uL (NEGATIVE) H Urine RBC 2-5 /HPF (0-1) H Urine WBC 2-5 /HPF (0-1) H Urine Squamous Epithelial Cells FEW /HPF (0-2) Urine Bacteria RARE /HPF (None Seen) Urine Hyaline Casts 0-1 /LPF (0-1 /LPF) Urine Opiates Screen NEGATIVE (NEGATIVE) Urine Barbiturates Screen NEGATIVE (NEGATIVE) Urine Phencyclidine Screen NEGATIVE (NEGATIVE) Urine Amphetamines Screen NEGATIVE (NEGATIVE) Urine Benzodiazepines Screen NEGATIVE (NEGATIVE) Urine Cocaine Screen NEGATIVE (NEGATIVE) Urine Marijuana (THC) Screen NEGATIVE (NEGATIVE) Labs Reviewed?: Yes EKG/XRAY/US/CT/MRI EKG Comment 02/26/2025 time 1:47 p.m. Ventricular rate 90 Sinus rhythm NM [address] wave elevation or depression X-RAY Comment IMAGING REPORT Signed PATIENT: JUANI GILL MR#: [id number] : 1960 SEX: F AGE: 64 LOCATION: [facility] ORDER STATUS: [facility] REPORT#: [id number] SERVICE [id number] REASON: cp ORDERING PHYSICIAN: ONI BENNETT MD PROCEDURE: CXR1VW - CHEST 1VW CHEST 1VW REASON: cp COMPARISON: 12/27/2022. FINDINGS: Single view of the chest was obtained. Lungs are clear. Heart size is normal. There is no pulmonary vascular congestion. Mediastinum and bony thorax appear unremarkable. IMPRESSION: 1. No acute cardiopulmonary process and unchanged from prior study DICTATED BY: VALENTINE WEBB MD DATE: 02/26/251408 ELECTRONICALLY SIGNED BY: VALENTINE WBEB MD DATE: 02/26/25 141 MDM MDM: Differential diagnosis: GI bleed, liver cirrhosis , hematemesis,acs Rationale: Tests considered and ordered secondary to shared decision making include: Previous outside records reviewed: Old ER visits. Risk of complication and/or morbidity or mortality of patient management: None Medications-Per medication reconciliation Need for hospitalization: Patient does meet criteria for hospitalization. Need for emergency major/minor surgery: No There are no social concerns with this patient. Prescription drug management Prescriptions will include symptomatic care Patient's prior external medical records from other ER visits were reviewed by me as indicated. Prior testing and results from previous visits were reviewed. Prior tests were taken into account with medical decision making and resource utilization, independent historian/historians were used to obtain complete medical history. I independently interpreted the test that were performed, results were reviewed by me and considered findings on radiology if ordered. Medical management and examination interpretation discussions were had by me with other qualified healthcare professionals as indicated for the patient's care. Patient will be admitted under the care of hospitalist group ED Course Orders Procedure Category Date Status Time Cbc With Differential LAB 02/26/25 Complete 13:29 Chest 1vw RAD 02/26/25 Resulted 13:29 12 Lead Ekg Tracing- EKG 02/26/25 Complete Technical 13:29 Creatine Kinase, Total LAB 02/26/25 Complete 13:29 Troponin I High LAB 02/26/25 Complete Sensitivity 13:29 Urinalysis Profile LAB 02/26/25 Complete 13:29 Basic Metabolic Panel LAB 02/26/25 Complete 13:29 Occult Blood Stool LAB 02/26/25 Logged Single Only 13:29 Pantoprazole 40mg Inj PHA 02/26/25 Complete (Protonix 40mg Inj 13:30 Pantoprazole 40mg Inj PHA 02/26/25 In Process (Protonix 40mg Inj 13:30 Octreotide Acetate PHA 02/26/25 Complete (Sandostatin) 13:30 Octreotide Acetate PHA 02/26/25 Complete (Sandostatin) 13:30 Compound Iv PHA 02/26/25 In Process Refrigerated 14:00 Compound Iv Misc PHA 02/26/25 In Process (Compound Iv Misc) 14:00 Octreotide Acetate PHA 02/26/25 In Process (Sandostatin) 14:00 Drug Screen Urine LAB 02/26/25 Complete 13:54 Culture Urine HENRRY 02/26/25 Logged 14:22 Current Medications Medications (Trade) Dose Ordered Sig/Marc Route PRN Reason Start Time Stop Time Status Last Admin Dose Admin Octreotide Acetate 1250 mcg/ Sodium Chloride 250 ml @ 0 mls/hr PROTOCOL IV 02/26/25 14:00 11/25 13:59 Octreotide Acetate 500 mcg/ Sodium Chloride 100 ml @ 0 mls/hr PROTOCOL IV 02/26/25 13:30 02/26/25 13:53 DC Octreotide Acetate (SandoSTATIN) 50 mcg ONCE ONCE IV 02/26/25 13:30 02/26/25 13:38 DC Pantoprazole Sodium (PROTonix 40MG INJ) 80 mg ONCE ONCE IVP 02/26/25 13:30 02/26/25 13:38 DC Pantoprazole Sodium 80 mg/ Sodium Chloride 100 ml @ 10 mls/hr Q10H IV 02/26/25 13:30 03/28/25 13:29 02/26/25 14:23 Vital Signs Date Time Temp Pulse Resp B/P (MAP) Pulse Ox O2 Delivery O2 Flow Rate FiO2 02/26/25 13:25 98.2 109 20 130/74 96 Room Air 0 DX & DISP Disposition: Inpatient Decision to Admit Time: 15:28 Departure Impression: Primary Impression: Hematemesis Additional Impressions: History of cirrhosis of liver, ACS (acute coronary syndrome), UTI (urinary tract infection) Condition: Stable Referrals: SELF,REFERRAL (PCP) ONI BENNETT MD Feb 26, 2025 13:48
[2025-02-26] MEDS ORDERED: COMPOUND IV REFRIGERATED 1 EACH IVSOLN MISC PRN (14:00)
[2025-02-26] MEDS ORDERED: COMPOUND IV MISC 1 EACH IVSOLN MISC PRN (14:00)
[2025-02-26 14:07] LABS: IMMATURE GRANULOCYTE ABSOLUTE 0.02 K/uL (0-1); NUCLEATED RED BLOOD CELLS 0.0 % (0.0-0.19); PLATELET COUNT (AUTO) 110 K/uL (130-400); RED BLOOD CELL COUNT(AUTO) 3.94 MIL/uL (4.00-5.50); RED CELL DISTRIBUTION WIDTH 13.8 % (11.0-15.5); WHITE BLOOD COUNT (AUTO) 7.5 K/uL (4.8-10.8)
--- NOTE | 2025-02-26 14:12 | HMCIMG ---
CHEST 1VW REASON: cp COMPARISON: 12/27/2022. FINDINGS: Single view of the chest was obtained. Lungs are clear. Heart size is normal. There is no pulmonary vascular congestion. Mediastinum and bony thorax appear unremarkable. IMPRESSION: 1. No acute cardiopulmonary process and unchanged from prior study
[2025-02-26 14:17] LABS: APPEARANCE,URINE CLEAR (CLEAR); GLUCOSE, URINE (UA) NEGATIVE (NEGATIVE); LEUKOCYTE ESTERASE ,URINE 75 Leu/uL (NEGATIVE); NITRATE,URINE NEGATIVE (NEGATIVE); OCCULT BLOOD,URINE NEGATIVE (NEGATIVE)
[2025-02-26 14:22] LABS: ADD UA MICROSCOPIC YES
[2025-02-26 14:23] LABS: HYALINE CASTS, URINE 0-1 /LPF (0-1 /LPF); SQUAMOUS EPITHELIAL CELL,UR FEW /HPF (0-2)
[2025-02-26 14:25] LABS: AMPHET/METH SCREEN,URINE NEGATIVE (NEGATIVE); BARBITURATE SCREEN, URINE NEGATIVE (NEGATIVE); CANNABINOID SCREEN,URINE NEGATIVE (NEGATIVE); COCAINE SCREEN,URINE NEGATIVE (NEGATIVE)
[2025-02-26 14:29] LABS: CREATINE KINASE, TOTAL 93.0 U/L (21-232); CREATININE 0.6 mg/dL (0.5-1.0); GLOMERULAR FILTR. RATE CALC 100.0 mL/min (>90); GLUCOSE,RANDOM 134.0 mg/dL (70-105); SODIUM SERUM 143.0 mmol/L (136-145); UREA NITROGEN, BLOOD 34.0 mg/dL (7-18)
--- NOTE | 2025-02-26 14:45 | EKG ---
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
--- NOTE | 2025-02-26 15:48 | HP ---
[facility] PH[facility] Date of Service: Feb 26, 2025 Time of Service: 15:48 HISTORY OF PRESENT ILLNESS: This is a 64-year-old female past medical history of liver cirrhosis, hepatitis- C who presented to the hospital secondary to hematemesis. The patient states she noted that she was having bloody vomit which started since yesterday. She states she was feeling nauseated and used her fingers to vomit. She noted some bright red blood with the vomit yesterday. He had another episode in the morning today. Additionally she noted that she was having black-colored stools at home with recent episode in the morning today. She denies being on any blood thinners and denies being on any aspirin. She has had a history of colonoscopy by Dr. Coats in the past. She states her hepatitis-C has been treated in the past. She denies any chest pain, shortness of breath, , fever, nausea, vomiting . She complained of pain in the right lower quadrant. On presentation to the ED patient's temperature was 98.2, heart rate was 109, blood pressure was 130/74, patient was saturating 96% on room air Patient's labs showed a white count of 7.5, hemoglobin was 12.8, platelet count was mildly low at 110k, the patient's sodium was 143, potassium was 3.8, creatinine was 0.6, troponin was mildly elevated at [address] abdomen pelvis which showed no acute intra-abdominal, pelvic abnormality. Findings were concerning for hepatic cirrhosis REVIEW OF SYSTEMS CONSTITUTIONAL: Denies fevers, chills, or night sweats. No unintentional weight loss reported. NEUROLOGICAL: Denies headache, amaurosis fugax, motor weakness, sensory deficit, vertigo/spinning sensation, gait abnormalities, or tremors. ENT: No hearing loss, otalgia, otorrhea, rhinitis, rhinorrhea, hoarseness, or sore throat. CARDIOVASCULAR: Denies any exertional angina, dyspnea on exertion, orthopnea, paroxysmal nocturnal dyspnea, palpitations, life-threatening arrhythmias, claudication. PULMONARY: Denies any shortness of breath, cough, phlegm/sputum, hemoptysis, pleuritic chest pain. GASTROINTESTINAL: Positive for abdominal pain, hematemesis, melena, nausea, vomiting. Denied any hematochezia GENITOURINARY: Denies frequency, urgency, nocturia, hematuria or incontinence (Storage/Irritative symptoms.) Low urinary stream, straining to void, urinary intermittency or hesitancy, splitting of the voiding stream, terminal dribbling. ENDOCRINOLOGIC: Denies polyuria, polydipsia, polyphagia or heat/cold into lerances. HEMATOLOGIC: Denies thrombophilia/previous clots, or coagulopathy/bleeding disorders. ONCOLOGIC: Denies personal history of malignancy. DERMATOLOGIC: Denies rashes or pruritus. PSYCHIATRIC: Denies any suicidal or homicidal ideation. Denies hallucinations. PAST MEDICAL HISTORY: Liver cirrhosis, hepatitis-C PAST SURGICAL HISTORY: History of PAST SOCIAL HISTORY: Denied any smoking. She does drink occasionally around once a week. Denied any drug use FAMILY HISTORY: Denied any pertinent family history Coded Allergies: pollen extracts (Unverified Allergy, Unknown, 02/07/21) POLLEN PHYSICAL EXAM GENERAL APPEARANCE: The patient is awake, alert, and oriented, in no acute cardiopulmonary distress. NEUROLOGICAL: Cranial nerves II-XII grossly intact. Motor is 5/5 in bilateral upper and lower extremities proximal to distal. No sensory deficits. HEENT: Face is symmetric. Pupils are equal and reactive. Extraocular movements are intact. NECK: Supple. No JVD. No thyromegaly. No submental, submandibular, pre- /postauricular, occipital or supraclavicular lymphadenopathy. CHEST: Normal chest expansion. No Telemetry. LUNGS: Absence of any rales, rhonchi or any wheezing. CARDIOVASCULAR: Regular. S1 and S2 normal. No appreciable rubs, murmurs or gallops. ABDOMEN: Soft, nontender, and nondistended. There is no rebound, voluntary guarding, or rigidity. : Deferred. No Hunter. EXTREMITIES: Non-edematous and not cyanotic. No clubbing. Good capillary refill. SKIN: No skin breakdown. Vital Sign (Last 24 Hours) 02/26/25 13:25 Temp 98.2 Pulse 109 Resp 20 B/P (MAP) 130/74 Pulse Ox 96 O2 Delivery Room Air O2 Flow Rate 0 LABS: Laboratory: Test 02/26/25 14:06 02/26/25 13:43 Range/Units Urine Color YELLOW YELLOW Urine Appearance CLEAR CLEAR Urine pH 6.0 5.0-8.0 Urine Specific [place] 1.029 1.001-1.031 Urine Protein 10 H NEGATIVE mg/dL Urine Glucose (UA) NEGATIVE NEGATIVE mg/dL Urine Ketones NEGATIVE NEGATIVE mg/dL Urine Occult Blood NEGATIVE NEGATIVE Urine Nitrate NEGATIVE NEGATIVE Urine Bilirubin NEGATIVE NEGATIVE mg/dL Urine Urobilinogen 2.0 H 0.2-1.0 mg/dL Urine Leukocyte Esterase 75 H NEGATIVE Vee/uL Urine RBC 2-5 H 0-1 /HPF Urine WBC 2-5 H 0-1 /HPF Urine Squamous Epithelial Cells FEW 0-2 /HPF Urine Bacteria RARE None Seen /HPF Urine Hyaline Casts 0-1 0-1 /LPF /LPF Urine Opiates Screen NEGATIVE NEGATIVE Urine Barbiturates Screen NEGATIVE NEGATIVE Urine Phencyclidine Screen NEGATIVE NEGATIVE Urine Amphetamines Screen NEGATIVE NEGATIVE Urine Benzodiazepines Screen NEGATIVE NEGATIVE Urine Cocaine Screen NEGATIVE NEGATIVE Urine Marijuana (THC) Screen NEGATIVE NEGATIVE White Blood Count 7.5 4.8-10.8 K/uL Red Blood Count 3.94 L 4.00-5.50 MIL/uL Hemoglobin 12.8 12.0-16.0 g/dL Hematocrit 37.5 36-48 % Mean Corpuscular Volume 95.2 79-99 fL Mean Corpuscular Hemoglobin 32.5 27.0-33.0 pg Mean Corpuscular Hemoglobin Concent 34.1 32.0-36.0 g/dL Red Cell Distribution Width 13.8 11.0-15.5 % Platelet Count 110 L 130-400 K/uL Mean Platelet Volume 10.6 H 7.5-10.5 fL Immature Granulocyte % (Auto) 0.3 0-1 % Neutrophils (%) (Auto) 75.2 40.0-77.0 % Lymphocytes (%) (Auto) 16.2 L 21.0-51.0 % Monocytes (%) (Auto) 7.4 3.0-13.0 % Eosinophils (%) (Auto) 0.4 0.0-8.0 % Basophils (%) (Auto) 0.5 0.0-5.0 % Neutrophils # (Auto) 5.6 1.8-7.7 K/uL Lymphocytes # (Auto) 1.2 1.0-4.8 K/uL Monocytes # (Auto) 0.6 0.1-1.0 K/uL Eosinophils # (Auto) 0.03 0.00-0.70 K/uL Basophils # (Auto) 0.04 0.00-0.20 K/uL Absolute Immature Granulocyte (auto 0.02 0-1 K/uL Nucleated Red Blood Cells 0.0 0.0-0.19 % Sodium Level 143 136-145 mmol/L Potassium Level 3.8 3.5-5.1 mmol/L Chloride Level 106 101-111 mmol/L Carbon Dioxide Level 27 21-32 mmol/L Blood Urea Nitrogen 34 H 7-18 mg/dL Creatinine 0.6 0.5-1.0 mg/dL Glomerular Filtration Rate Calc 100 >90 mL/min Random Glucose 134 H 70-105 mg/dL Total Calcium 8.7 8.5-10.1 mg/dL Total Creatine Kinase 93 21-232 U/L Troponin I High Sensitivity 147 *H 4-50 ng/L Current Medications Medications (Trade) Dose Ordered Sig/Marc Route PRN Reason Start Time Stop Time Status Last Admin Dose Admin Octreotide Acetate 1250 mcg/ Sodium Chloride 250 ml @ 0 mls/hr PROTOCOL IV 02/26/25 14:00 03/28/25 13:59 Octreotide Acetate 500 mcg/ Sodium Chloride 100 ml @ 0 mls/hr PROTOCOL IV 02/26/25 13:30 02/26/25 13:53 DC Pantoprazole Sodium 80 mg/ Sodium Chloride 100 ml @ 10 mls/hr Q10H IV 02/26/25 13:30 03/28/25 13:29 02/26/25 14:23 10 MLS/HR DIAGNOSTICS / RADIOLOGY: Chest x-ray did not show any acute ASSESSMENT: Hematemesis POA Melena Thrombocytopenia Liver cirrhosis History of hepatitis-C Mild troponin elevation likely type 2from demand mismatch PLAN: - patient to be admitted to PCCU -in reference to hematemesis, melena. Patient will continue on Protonix drip, octreotide drip. We will trend H&H q.6 hours. We will request consultation with Gastroenterology. Patient will be NPO for now. Patient will be started on NS for gentle hydration. Obtain CT abdomen pelvis -in reference to troponin elevation. We will request consultation with Cardiology. Patient denies any active chest pain. -obtain patient's home medications which will be reconciled once available -further orders per hospitalization course. Advanced Care Planning Which of the following were discussed: Hospice care: Yes __ No _x_ Therapeutic options: Yes __ No __ Advance directives: Yes __ No __ Other discussions: Pt is full code Discussed with who?: patient (Patient, family or surrogates) Voluntary nature of this service was explained to the patient? Yes _x_ No __ Amount of time spent: 25 minutes PATRICIO Myers MD, MD Feb 26, 2025 15:48
[2025-02-26] MEDS: 0.9%NACL 1000ML 1,000 ML IV SCH (16:19)
[2025-02-26 16:32] LABS: INR 1.25 (0.85-1.15)
--- NOTE | 2025-02-26 17:31 | HMCIMG ---
EXAM: CT Abdomen and Pelvis Without IV contrast CLINICAL HISTORY: GI bleed, rlq pain TECHNIQUE: Axial computed tomography images of the abdomen and pelvis without intravenous contrast. CONTRAST: No IV contrast. COMPARISON: None provided. FINDINGS: LUNG BASES: The lung bases appear clear. No pleural effusions are seen. LIVER: Liver is nodular in contour. This suggest underlying cirrhosis. GALLBLADDER AND BILE DUCTS: The gallbladder appears within normal limits. No radioopaque gallstones are seen. No biliary ductal dilatation is evident. PANCREAS: Unremarkable. SPLEEN: Unremarkable. ADRENAL GLANDS: Unremarkable. KIDNEYS, URETERS, AND BLADDER: The kidneys appear within normal limits. There is no hydronephrosis or hydroureter. No urinary calculi are seen. STOMACH AND BOWEL: Unremarkable appearance of the stomach and bowel. No evidence of bowel obstruction. No evidence suggesting enteritis or colitis. APPENDIX: No evidence of acute appendicitis on CT examination. PERITONEUM: No free fluid. No free air. LYMPH NODES: No lymphadenopathy is evident. REPRODUCTIVE: Unremarkable as visualized. VASCULATURE: No evidence of abdominal aortic aneurysm. BONES: No aggressive appearing osseous lesion. No acute osseous pathology evident. IMPRESSION: No acute intra-abdominal or pelvic abnormality. Findings suggest hepatic cirrhosis /[place]
--- NOTE | 2025-02-26 17:37 | NUR ---
REPORT GIVEN TO ARABELLA BEY AT 1730, PT STABLE NO DISTRESS VITALS WNL NO C/O PAIN NOW, PT TAKEN UP VIA STRETCHER WITH PERSONAL BELONGINGS.
[2025-02-26 17:45] VITALS: BP 113/73; PULSE 88; RESP 20; TEMP 98.7
--- NOTE | 2025-02-26 17:59 | CONS ---
GASTROENTEROLOGY CONSULTATION NOTE Date of Consultation: Feb 26, 2025 Time of Consultation: 17:55 History of Present Illness: [ This is a 64-year-old female patient with past medical history of liver cirrhosis, anemia, anxiety, hypertension, who presented to the emergency room with complaints of hematemesis. 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 CT of Abdomen and pelvis without contrast showing no acute intra-abdominal or pelvic abnormality. Findings suggest hepatic cirrhosis. Chest x-ray negative for any acute cardiopulmonary process. WBC of 7.5, hemoglobin of 12.8, hematocrit 37.2, platelets 110. BUN 34, glucose 134. PT 13, INR 1.25. FOBT positive. Patient is hemodynamically stable. During exam, patient is awake, alert, and oriented x3. Her respirations are unlabored. Bilateral breath sounds are clear. Abdomen is soft and not distended. Patient reported vomiting blood. Recommendations for EGD given. All her questions were answered. She agreed to proceed. Review of Systems: CONSTITUTIONAL: No malaise or change in sensation of wellbeing. ENMT: No rhinorrhea, otorrhea, sinus pain, ear ache. CARDIOVASCULAR: No angina, palpitations, orthopnea or paroxysmal dyspnea. RESPIRATORY: No SOB. GASTROINTESTINAL: No abdominal pain, nausea, vomiting, diarrhea, hematemesis, melena or change in the patient's habitual bowel movements consistency/number. GENITOURINARY: No dysuria, hematuria or change in bladder continence. MUSCULOSKELETAL: No new muscle pain or decrease in muscular strength. No new joint swelling, redness or tenderness. SKIN: No new rash. Past Medical History: Anemia, Anxiety, Hypertension, Liver Disease HEP C, STOMACH LINING PROB Past Surgical History: , KNEE CAP Coded Allergies: pollen extracts (Unverified Allergy, Unknown, 02/07/21) POLLEN Physical Exam: GEN: Awake, alert, oriented in person, time and place, and in no acute distress. HEENT: No rhinorrhea. Oral mucosa is pink, moist and within normal limits. CHEST: Lung auscultation revealed normal breath sounds bilaterally. CARDIAC:Heart sounds are regular. ABD: Soft, non-tender and not distended. Normal bowel sounds. Last bm 02/26/25 EXT: No cyanosis or clubbing. No edema. SKIN: Intact. No rashes. NEURO: Alert and oriented to name, place and person.No focal motor deficits. Normal speech. Vital Sign (Last 24 Hours) 02/26/25 15:46 Temp 98.4 Pulse 82 Resp 17 B/P (MAP) 112/65 Pulse Ox 96 O2 Delivery Room Air* O2 Flow Rate 0 FiO2 21 Laboratory: [ ] Laboratory: Test 02/26/25 17:10 02/26/25 16:11 02/26/25 14:06 02/26/25 13:43 Range/Units Stool Occult Blood POSITIVE H NEGATIVE Hemoglobin 12.8 12.0-16.0 g/dL Hematocrit 37.2 36-48 % Prothrombin Time 13.0 H 9.6-11.6 SEC Prothromb Time International Ratio 1.25 H 0.85-1.15 Activated Partial Thromboplast Time 26.4 26.3-35.5 SEC Troponin I High Sensitivity 163 *H 4-50 ng/L Urine Color YELLOW YELLOW Urine Appearance CLEAR CLEAR Urine pH 6.0 5.0-8.0 Urine Specific [place] 1.029 1.001-1.031 Urine Protein 10 H NEGATIVE mg/dL Urine Glucose (UA) NEGATIVE NEGATIVE mg/dL Urine Ketones NEGATIVE NEGATIVE mg/dL Urine Occult Blood NEGATIVE NEGATIVE Urine Nitrate NEGATIVE NEGATIVE Urine Bilirubin NEGATIVE NEGATIVE mg/dL Urine Urobilinogen 2.0 H 0.2-1.0 mg/dL Urine Leukocyte Esterase 75 H NEGATIVE Vee/uL Urine RBC 2-5 H 0-1 /HPF Urine WBC 2-5 H 0-1 /HPF Urine Squamous Epithelial Cells FEW 0-2 /HPF Urine Bacteria RARE None Seen /HPF Urine Hyaline Casts 0-1 0-1 /LPF /LPF Urine Opiates Screen NEGATIVE NEGATIVE Urine Barbiturates Screen NEGATIVE NEGATIVE Urine Phencyclidine Screen NEGATIVE NEGATIVE Urine Amphetamines Screen NEGATIVE NEGATIVE Urine Benzodiazepines Screen NEGATIVE NEGATIVE Urine Cocaine Screen NEGATIVE NEGATIVE Urine Marijuana (THC) Screen NEGATIVE NEGATIVE White Blood Count 7.5 4.8-10.8 K/uL Red Blood Count 3.94 L 4.00-5.50 MIL/uL Mean Corpuscular Volume 95.2 79-99 fL Mean Corpuscular Hemoglobin 32.5 27.0-33.0 pg Mean Corpuscular Hemoglobin Concent 34.1 32.0-36.0 g/dL Red Cell Distribution Width 13.8 11.0-15.5 % Platelet Count 110 L 130-400 K/uL Mean Platelet Volume 10.6 H 7.5-10.5 fL Immature Granulocyte % (Auto) 0.3 0-1 % Neutrophils (%) (Auto) 75.2 40.0-77.0 % Lymphocytes (%) (Auto) 16.2 L 21.0-51.0 % Monocytes (%) (Auto) 7.4 3.0-13.0 % Eosinophils (%) (Auto) 0.4 0.0-8.0 % Basophils (%) (Auto) 0.5 0.0-5.0 % Neutrophils # (Auto) 5.6 1.8-7.7 K/uL Lymphocytes # (Auto) 1.2 1.0-4.8 K/uL Monocytes # (Auto) 0.6 0.1-1.0 K/uL Eosinophils # (Auto) 0.03 0.00-0.70 K/uL Basophils # (Auto) 0.04 0.00-0.20 K/uL Absolute Immature Granulocyte (auto 0.02 0-1 K/uL Nucleated Red Blood Cells 0.0 0.0-0.19 % Sodium Level 143 136-145 mmol/L Potassium Level 3.8 3.5-5.1 mmol/L Chloride Level 106 101-111 mmol/L Carbon Dioxide Level 27 21-32 mmol/L Blood Urea Nitrogen 34 H 7-18 mg/dL Creatinine 0.6 0.5-1.0 mg/dL Glomerular Filtration Rate Calc 100 >90 mL/min Random Glucose 134 H 70-105 mg/dL Hemoglobin A1c 4.7 4.0-6.0 % Estimated Average Glucose (eAG) 88 70-126 mg/dL Total Calcium 8.7 8.5-10.1 mg/dL Total Creatine Kinase 93 21-232 U/L C-Reactive Protein, Quantitative 4.60 H 0.5-3.0 mg/L Procalcitonin 0.09 0.05-0.5 ng/mL Thyroid Stimulating Hormone (TSH) 0.71 # 0.36-3.74 uIU/mL Current Medications Medications (Trade) Dose Ordered Sig/Marc Route PRN Reason Start Time Stop Time Status Last Admin Dose Admin Acetaminophen (TYLenol 500MG TAB) 500 mg Q6H PRN PO MILD PAIN (1-3) 02/26/25 16:00 03/28/25 15:59 Octreotide Acetate 1250 mcg/ Sodium Chloride 250 ml @ 0 mls/hr PROTOCOL IV 02/26/25 14:00 03/28/25 13:59 Octreotide Acetate 500 mcg/ Sodium Chloride 100 ml @ 0 mls/hr PROTOCOL IV 02/26/25 13:30 02/26/25 13:53 DC Ondansetron HCl (zoFRAN 4MG INJ) 4 mg Q6H PRN IVP NAUSEA/VOMITING 02/26/25 16:00 03/28/25 15:59 Pantoprazole Sodium 80 mg/ Sodium Chloride 100 ml @ 10 mls/hr Q10H IV 02/26/25 13:30 03/28/25 13:29 02/26/25 14:23 10 MLS/HR Sodium Chloride 1,000 ml @ 75 mls/hr [id number] IV 02/26/25 16:00 03/28/25 15:59 02/26/25 16:19 75 MLS/HR Diagnostics / Radiology: [COPY/PASTE HERE IF NO REPORTS PLEASE DELETE SECTION] Assessment: [Melena Concern for GI bleed Liver cirrhosis Hepatitis-C] Plan: [ Case discussed with Dr. Tompkins Keep patient NPO Plan for EGD in a.m. Continue with Protonix 40 mg IV Continue with octreotide drip Please call with questions, concerns, and change in clinical status, and any signs and symptoms of overt GI bleed Thank you for allowing us to be part of this patient care.] AVANI LAUREANO HAND [employer]NER Feb 26, 2025 17:59
[2025-02-26 19:06] VITALS: BP 120/69; PULSE 87; RESP 18; TEMP 97.9
[2025-02-27] VITALS (24 sets, daily range): BP systolic 102–148; BP diastolic 50–86; PULSE 67–75; RESP 14–18; TEMP 97.8–98.7; O2SAT 98–99
--- NOTE | 2025-02-27 09:48 | PN ---
[facility] PROGRESS NOTE Date of Service: Feb 27, 2025 Time of Service: 09:42 SUBJECTIVE: [64-year-old female with history of liver cirrhosis admitted due to hematemesis/upper GI bleed. Gastroenterology has been consulted who recommended EGD with MAC this morning. We will monitor during her H&H which is gradually downtrending. We will repeat labs today. We will add LFTs. ] REVIEW OF SYSTEMS CONSTITUTIONAL: Denies fevers, chills, or night sweats. No unintentional weight loss reported. NEUROLOGICAL: Denies headache, amaurosis fugax, motor weakness, sensory deficit, vertigo/spinning sensation, gait abnormalities, or tremors. ENT: No hearing loss, otalgia, otorrhea, rhinitis, rhinorrhea, hoarseness, or sore throat. CARDIOVASCULAR: Denies any exertional angina, dyspnea on exertion, orthopnea, paroxysmal nocturnal dyspnea, palpitations, life-threatening arrhythmias, claudication. PULMONARY: Denies any shortness of breath, cough, phlegm/sputum, hemoptysis, pleuritic chest pain. GASTROINTESTINAL: Positive for abdominal pain, hematemesis, melena, nausea, vomiting. Denied any hematochezia GENITOURINARY: Denies frequency, urgency, nocturia, hematuria or incontinence (Storage/Irritative symptoms.) Low urinary stream, straining to void, urinary intermittency or hesitancy, splitting of the voiding stream, terminal dribbling. ENDOCRINOLOGIC: Denies polyuria, polydipsia, polyphagia or heat/cold intolerances. HEMATOLOGIC: Denies thrombophilia/previous clots, or coagulopathy/bleeding disorders. ONCOLOGIC: Denies personal history of malignancy. DERMATOLOGIC: Denies rashes or pruritus. PSYCHIATRIC: Denies any suicidal or homicidal ideation. Denies hallucinations. PHYSICAL EXAM GENERAL APPEARANCE: The patient is awake, alert, and oriented, in no acute cardiopulmonary distress. NEUROLOGICAL: Cranial nerves II-XII grossly intact. Motor is 5/5 in bilateral upper and lower extremities proximal to distal. No sensory deficits. HEENT: Face is symmetric. Pupils are equal and reactive. Extraocular movements are intact. NECK: Supple. No JVD. No thyromegaly. No submental, submandibular, pre- /postauricular, occipital or supraclavicular lymphadenopathy. CHEST: Normal chest expansion. No Telemetry. LUNGS: Absence of any rales, rhonchi or any wheezing. CARDIOVASCULAR: Regular. S1 and S2 normal. No appreciable rubs, murmurs or gallops. ABDOMEN: Soft, nontender, and nondistended. There is no rebound, voluntary guarding, or rigidity. : Deferred. No Hunter. EXTREMITIES: Non-edematous and not cyanotic. No clubbing. Good capillary refill. SKIN: No skin breakdown. Vital Signs (last 8hr) Date Time Temp Pulse Resp B/P (MAP) Pulse Ox O2 Delivery O2 Flow Rate FiO2 02/27/25 07:38 97.9 73 16 109/56 96 Room Air 02/27/25 04:19 98.8 70 18 111/62 95 Room Air LABS: Laboratory: Test 02/27/25 03:28 02/26/25 17:10 02/26/25 16:11 02/26/25 14:06 Range/Units Hemoglobin 10.8 L 12.0-16.0 g/dL Hematocrit 30.1 L 36-48 % Troponin I High Sensitivity 160 *H 4-50 ng/L Stool Occult Blood POSITIVE H NEGATIVE Prothrombin Time 13.0 H 9.6-11.6 SEC Prothromb Time International Ratio 1.25 H 0.85-1.15 Activated Partial Thromboplast Time 26.4 26.3-35.5 SEC Urine Color YELLOW YELLOW Urine Appearance CLEAR CLEAR Urine pH 6.0 5.0-8.0 Urine Specific [place] 1.029 1.001-1.031 Urine Protein 10 H NEGATIVE mg/dL Urine Glucose (UA) NEGATIVE NEGATIVE mg/dL Urine Ketones NEGATIVE NEGATIVE mg/dL Urine Occult Blood NEGATIVE NEGATIVE Urine Nitrate NEGATIVE NEGATIVE Urine Bilirubin NEGATIVE NEGATIVE mg/dL Urine Urobilinogen 2.0 H 0.2-1.0 mg/dL Urine Leukocyte Esterase 75 H NEGATIVE Vee/uL Urine RBC 2-5 H 0-1 /HPF Urine WBC 2-5 H 0-1 /HPF Urine Squamous Epithelial Cells FEW 0-2 /HPF Urine Bacteria RARE None Seen /HPF Urine Hyaline Casts 0-1 0-1 /LPF /LPF Urine Opiates Screen NEGATIVE NEGATIVE Urine Barbiturates Screen NEGATIVE NEGATIVE Urine Phencyclidine Screen NEGATIVE NEGATIVE Urine Amphetamines Screen NEGATIVE NEGATIVE Urine Benzodiazepines Screen NEGATIVE NEGATIVE Urine Cocaine Screen NEGATIVE NEGATIVE Urine Marijuana (THC) Screen NEGATIVE NEGATIVE Test 02/26/25 13:43 Range/Units White Blood Count 7.5 4.8-10.8 K/uL Red Blood Count 3.94 L 4.00-5.50 MIL/uL Mean Corpuscular Volume 95.2 79-99 fL Mean Corpuscular Hemoglobin 32.5 27.0-33.0 pg Mean Corpuscular Hemoglobin Concent 34.1 32.0-36.0 g/dL Red Cell Distribution Width 13.8 11.0-15.5 % Platelet Count 110 L 130-400 K/uL Mean Platelet Volume 10.6 H 7.5-10.5 fL Immature Granulocyte % (Auto) 0.3 0-1 % Neutrophils (%) (Auto) 75.2 40.0-77.0 % Lymphocytes (%) (Auto) 16.2 L 21.0-51.0 % Monocytes (%) (Auto) 7.4 3.0-13.0 % Eosinophils (%) (Auto) 0.4 0.0-8.0 % Basophils (%) (Auto) 0.5 0.0-5.0 % Neutrophils # (Auto) 5.6 1.8-7.7 K/uL Lymphocytes # (Auto) 1.2 1.0-4.8 K/uL Monocytes # (Auto) 0.6 0.1-1.0 K/uL Eosinophils # (Auto) 0.03 0.00-0.70 K/uL Basophils # (Auto) 0.04 0.00-0.20 K/uL Absolute Immature Granulocyte (auto 0.02 0-1 K/uL Nucleated Red Blood Cells 0.0 0.0-0.19 % Sodium Level 143 136-145 mmol/L Potassium Level 3.8 3.5-5.1 mmol/L Chloride Level 106 101-111 mmol/L Carbon Dioxide Level 27 21-32 mmol/L Blood Urea Nitrogen 34 H 7-18 mg/dL Creatinine 0.6 0.5-1.0 mg/dL Glomerular Filtration Rate Calc 100 >90 mL/min Random Glucose 134 H 70-105 mg/dL Hemoglobin A1c 4.7 4.0-6.0 % Estimated Average Glucose (eAG) 88 70-126 mg/dL Total Calcium 8.7 8.5-10.1 mg/dL Total Creatine Kinase 93 21-232 U/L C-Reactive Protein, Quantitative 4.60 H 0.5-3.0 mg/L Procalcitonin 0.09 0.05-0.5 ng/mL Thyroid Stimulating Hormone (TSH) 0.71 # 0.36-3.74 uIU/mL Current Medications Medications (Trade) Dose Ordered Sig/Marc Route PRN Reason Start Time Stop Time Status Last Admin Dose Admin Acetaminophen (TYLenol 500MG TAB) 500 mg Q6H PRN PO MILD PAIN (1-3) 02/26/25 16:00 03/28/25 15:59 Octreotide Acetate 1250 mcg/ Sodium Chloride 250 ml @ 0 mls/hr PROTOCOL IV 02/26/25 14:00 03/28/25 13:59 02/27/25 06:14 3 MLS/HR Octreotide Acetate 500 mcg/ Sodium Chloride 100 ml @ 0 mls/hr PROTOCOL IV 02/26/25 13:30 02/26/25 13:53 DC Ondansetron HCl (zoFRAN 4MG INJ) 4 mg Q6H PRN IVP NAUSEA/VOMITING 02/26/25 16:00 03/28/25 15:59 Pantoprazole Sodium 80 mg/ Sodium Chloride 100 ml @ 10 mls/hr Q10H IV 02/26/25 13:30 03/28/25 13:29 02/27/25 06:11 10 MLS/HR Sodium Chloride 1,000 ml @ 75 mls/hr [id number] IV 02/26/25 16:00 03/28/25 15:59 02/27/25 06:11 75 MLS/HR DIAGNOSTICS / RADIOLOGY: [ ] ASSESSMENT: Hematemesis POA Melena Thrombocytopenia Liver cirrhosis History of hepatitis-C Mild troponin elevation likely type 2from demand mismatch PLAN: - Level of Care: Admit to PCCU for close monitoring. - Medications: - Continue Sandostatin infusion. - Continue Protonix drip. - IV Fluids: Maintain gentle hydration with normal saline at 50 mL/hour. - Consultations: - Gastroenterology: EGD with monitored anesthesia care (MAC) scheduled for this morning. - Cardiology: Consulted for evaluation and management of suspected NSTEMI (demand ischemia). - Monitoring and Labs: - Repeat laboratory studies in the morning, including CBC, CMP, coagulation profile, and troponin. - Prophylaxis: - Initiate GI prophylaxis. - Initiate DVT prophylaxis as appropriate, considering thrombocytopenia. GI bleed. We will start SCD Bilat - Code Status: Patient is a full code. - Communication: Case discussed with Dr. Zamudio; plan formulated as above. ATTESTATION BY PHYSICIAN I have seen and examined the patient. I reviewed the documentation, medical decision making, and treatment plan as noted by the mid-level provider above. I agree with the findings and plan of care. Narciso Zamudio IV, MD, [facility] Feb 27, 2025 09:48
[2025-02-28] VITALS (7 sets, daily range): BP systolic 107–122; BP diastolic 64–69; PULSE 60–69; RESP 16–18; TEMP 98–98.8; O2SAT 96–98
[2025-02-28 04:18] LABS: NUCLEATED RED BLOOD CELLS 0.0 % (0.0-0.19); PLATELET COUNT (AUTO) 54 K/uL (130-400); RED BLOOD CELL COUNT(AUTO) 2.93 MIL/uL (4.00-5.50); RED CELL DISTRIBUTION WIDTH 13.8 % (11.0-15.5); WHITE BLOOD COUNT (AUTO) 3.0 K/uL (4.8-10.8)
[2025-02-28 04:35] LABS: ASPARTATE AMINOTRANSFERASE 116.0 U/L (10-37); CREATININE 0.5 mg/dL (0.5-1.0); GLOMERULAR FILTR. RATE CALC 105.0 mL/min (>90); GLUCOSE,RANDOM 116.0 mg/dL (70-105); SODIUM SERUM 141.0 mmol/L (136-145); TOTAL PROTEIN, SERUM 5.4 g/dL (6.0-8.3); UREA NITROGEN, BLOOD 13.0 mg/dL (7-18)
[2025-02-28 04:57] LABS: EOSINOPHILS % (MANUAL) 1 % (1-6); LYMPHOCYTES % (MANUAL) 10 % (22-44); MAN.DIFF COMMENT-IMPRESSION MANUAL DIFFERENTIAL; MONOCYTES % (MANUAL) 6 % (2-9); PLATELET MORPHOLOGY COMMENT DECREASED; SEGMENTED NEUTROPHILS % 83 % (40-70)
--- NOTE | 2025-02-28 11:32 | PN ---
[facility] PROGRESS NOTE Date of Service: Feb 28, 2025 Time of Service: 11:22 SUBJECTIVE: [64-year-old female with a history of liver cirrhosis admitted for hematemesis/upper GI bleed. No new complaints this morning. Denies further episodes of hematemesis, melena, or abdominal pain. Tolerating clear liquids. REVIEW OF SYSTEMS CONSTITUTIONAL: Denies fevers, chills, or night sweats. No unintentional weight loss reported. NEUROLOGICAL: Denies headache, amaurosis fugax, motor weakness, sensory deficit, vertigo/spinning sensation, gait abnormalities, or tremors. ENT: No hearing loss, otalgia, otorrhea, rhinitis, rhinorrhea, hoarseness, or sore throat. CARDIOVASCULAR: Denies any exertional angina, dyspnea on exertion, orthopnea, paroxysmal nocturnal dyspnea, palpitations, life-threatening arrhythmias, claudication. PULMONARY: Denies any shortness of breath, cough, phlegm/sputum, hemoptysis, pleuritic chest pain. GASTROINTESTINAL: Positive for abdominal pain, hematemesis, melena, nausea, vomiting. Denied any hematochezia GENITOURINARY: Denies frequency, urgency, nocturia, hematuria or incontinence ( Storage/Irritative symptoms.) Low urinary stream, straining to void, urinary intermittency or hesitancy, splitting of the voiding stream, terminal dribbling. ENDOCRINOLOGIC: Denies polyuria, polydipsia, polyphagia or heat/cold intolerances. HEMATOLOGIC: Denies thrombophilia/previous clots, or coagulopathy/bleeding disorders. ONCOLOGIC: Denies personal history of malignancy. DERMATOLOGIC: Denies rashes or pruritus. PSYCHIATRIC: Denies any suicidal or homicidal ideation. Denies hallucinations. PHYSICAL EXAM GENERAL APPEARANCE: The patient is awake, alert, and oriented, in no acute cardiopulmonary distress. NEUROLOGICAL: Cranial nerves II-XII grossly intact. Motor is 5/5 in bilateral upper and lower extremities proximal to distal. No sensory deficits. HEENT: Face is symmetric. Pupils are equal and reactive. Extraocular movements are intact. NECK: Supple. No JVD. No thyromegaly. No submental, submandibular, pre- /postauricular, occipital or supraclavicular lymphadenopathy. CHEST: Normal chest expansion. No Telemetry. LUNGS: Absence of any rales, rhonchi or any wheezing. CARDIOVASCULAR: Regular. S1 and S2 normal. No appreciable rubs, murmurs or gallops. ABDOMEN: Soft, nontender, and nondistended. There is no rebound, voluntary guarding, or rigidity. : Deferred. No Hunter. EXTREMITIES: Non-edematous and not cyanotic. No clubbing. Good capillary refill. SKIN: No skin breakdown. Vital Signs (last 8hr) Date Time Temp Pulse Resp B/P (MAP) Pulse Ox O2 Delivery O2 Flow Rate FiO2 02/28/25 07:40 98.1 69 16 120/64 95 Room Air LABS: Laboratory: Test 02/28/25 04:08 02/27/25 03:28 02/26/25 17:10 02/26/25 16:11 Range/Units White Blood Count 3.0 L 4.8-10.8 K/uL Red Blood Count 2.93 L 4.00-5.50 MIL/uL Hemoglobin 9.6 L 12.0-16.0 g/dL Hematocrit 27.7 L 36-48 % Mean Corpuscular Volume 94.5 79-99 fL Mean Corpuscular Hemoglobin 32.8 27.0-33.0 pg Mean Corpuscular Hemoglobin Concent 34.7 32.0-36.0 g/dL Red Cell Distribution Width 13.8 11.0-15.5 % Platelet Count 54 #L 130-400 K/uL Mean Platelet Volume 10.6 H 7.5-10.5 fL Segmented Neutrophils % 83 H 40-70 % Lymphocytes % (Manual) 10 L 22-44 % Monocytes % (Manual) 6 2-9 % Eosinophils % (Manual) 1 1-6 % Nucleated Red Blood Cells 0.0 0.0-0.19 % Differential Comment MANUAL DIFFERENTIAL White Cell Morphology Comment Platelet Morphology Comment DECREASED Red Blood Cell Morphology Sodium Level 141 136-145 mmol/L Potassium Level 3.4 L 3.5-5.1 mmol/L Chloride Level 107 101-111 mmol/L Carbon Dioxide Level 24 21-32 mmol/L Blood Urea Nitrogen 13 7-18 mg/dL Creatinine 0.5 0.5-1.0 mg/dL Glomerular Filtration Rate Calc 105 >90 mL/min Random Glucose 116 H 70-105 mg/dL Total Calcium 7.3 L 8.5-10.1 mg/dL Total Bilirubin 1.3 H 0.2-1.0 mg/dL Direct Bilirubin 0.7 H 0.0-0.3 mg/dL Aspartate Amino Transf (AST/SGOT) 116 H 10-37 U/L Alanine Aminotransferase (ALT/SGPT) 73 12-78 U/L Alkaline Phosphatase 99 50-136 U/L Total Protein 5.4 L 6.0-8.3 g/dL Albumin 2.9 L 3.5-5.0 g/dL Troponin I High Sensitivity 160 *H 4-50 ng/L Stool Occult Blood POSITIVE H NEGATIVE Prothrombin Time 13.0 H 9.6-11.6 SEC Prothromb Time International Ratio 1.25 H 0.85-1.15 Activated Partial Thromboplast Time 26.4 26.3-35.5 SEC Test 02/26/25 14:06 02/26/25 13:43 Range/Units Urine Color YELLOW YELLOW Urine Appearance CLEAR CLEAR Urine pH 6.0 5.0-8.0 Urine Specific [place] 1.029 1.001-1.031 Urine Protein 10 H NEGATIVE mg/dL Urine Glucose (UA) NEGATIVE NEGATIVE mg/dL Urine Ketones NEGATIVE NEGATIVE mg/dL Urine Occult Blood NEGATIVE NEGATIVE Urine Nitrate NEGATIVE NEGATIVE Urine Bilirubin NEGATIVE NEGATIVE mg/dL Urine Urobilinogen 2.0 H 0.2-1.0 mg/dL Urine Leukocyte Esterase 75 H NEGATIVE Vee/uL Urine RBC 2-5 H 0-1 /HPF Urine WBC 2-5 H 0-1 /HPF Urine Squamous Epithelial Cells FEW 0-2 /HPF Urine Bacteria RARE None Seen /HPF Urine Hyaline Casts 0-1 0-1 /LPF /LPF Urine Opiates Screen NEGATIVE NEGATIVE Urine Barbiturates Screen NEGATIVE NEGATIVE Urine Phencyclidine Screen NEGATIVE NEGATIVE Urine Amphetamines Screen NEGATIVE NEGATIVE Urine Benzodiazepines Screen NEGATIVE NEGATIVE Urine Cocaine Screen NEGATIVE NEGATIVE Urine Marijuana (THC) Screen NEGATIVE NEGATIVE Immature Granulocyte % (Auto) 0.3 0-1 % Neutrophils (%) (Auto) 75.2 40.0-77.0 % Lymphocytes (%) (Auto) 16.2 L 21.0-51.0 % Monocytes (%) (Auto) 7.4 3.0-13.0 % Eosinophils (%) (Auto) 0.4 0.0-8.0 % Basophils (%) (Auto) 0.5 0.0-5.0 % Neutrophils # (Auto) 5.6 1.8-7.7 K/uL Lymphocytes # (Auto) 1.2 1.0-4.8 K/uL Monocytes # (Auto) 0.6 0.1-1.0 K/uL Eosinophils # (Auto) 0.03 0.00-0.70 K/uL Basophils # (Auto) 0.04 0.00-0.20 K/uL Absolute Immature Granulocyte (auto 0.02 0-1 K/uL Hemoglobin A1c 4.7 4.0-6.0 % Estimated Average Glucose (eAG) 88 70-126 mg/dL Total Creatine Kinase 93 21-232 U/L C-Reactive Protein, Quantitative 4.60 H 0.5-3.0 mg/L Procalcitonin 0.09 0.05-0.5 ng/mL Thyroid Stimulating Hormone (TSH) 0.71 # 0.36-3.74 uIU/mL Current Medications Medications (Trade) Dose Ordered Sig/Marc Route PRN Reason Start Time Stop Time Status Last Admin Dose Admin Acetaminophen (TYLenol 500MG TAB) 500 mg Q6H PRN PO MILD PAIN (1-3) 02/26/25 16:00 03/28/25 15:59 Octreotide Acetate 1250 mcg/ Sodium Chloride 250 ml @ 0 mls/hr PROTOCOL IV 02/26/25 14:00 03/28/25 13:59 02/27/25 06:14 3 MLS/HR Octreotide Acetate 500 mcg/ Sodium Chloride 100 ml @ 0 mls/hr PROTOCOL IV 02/26/25 13:30 02/26/25 13:53 DC Ondansetron HCl (zoFRAN 4MG INJ) 4 mg Q6H PRN IVP NAUSEA/VOMITING 02/26/25 16:00 03/28/25 15:59 Pantoprazole Sodium 80 mg/ Sodium Chloride 100 ml @ 10 mls/hr Q10H IV 02/26/25 13:30 03/28/25 13:29 02/28/25 06:11 10 MLS/HR Sodium Chloride 1,000 ml @ 75 mls/hr [id number] IV 02/26/25 16:00 03/28/25 15:59 02/28/25 10:36 75 MLS/HR DIAGNOSTICS / RADIOLOGY: [ ] ASSESSMENT: Post EGD: * Upper GI bleed, likely secondary to gastritis in the setting of cirrhosis * Grade 1 esophageal varices without active bleeding * Hemoglobin slightly downtrending; monitoring closely Hematemesis POA Melena Thrombocytopenia Liver cirrhosis Hepatitis cirrhosis per CT A/P (02/27/25) History of hepatitis-C Mild troponin elevation likely type 2from demand mismatch PLAN: - Level of Care: Admit to PCCU for close monitoring. - Medications: - Continue Sandostatin infusion x 72 hrs. - Continue Protonix drip x 72 hrs. - IV Fluids: Maintain gentle hydration with normal saline at 50 mL/hour. - Consultations: - Gastroenterology: s/p EGD, will follow their recommendations - Cardiology: Consulted for evaluation and management of suspected NSTEMI (demand ischemia). - Monitoring and Labs: - We will repeat CBC at noon todau - Repeat laboratory studies in the morning, including CBC, CMP, coagulation profile, and troponin. - Prophylaxis: - C/w GI prophylaxis. - C/w DVT prophylaxis as appropriate, considering thrombocytopenia. GI bleed. We will start SCD Bilat - Code Status: Patient is a full code. - Communication: Case discussed with Dr. Zamudio; plan formulated as above. ATTESTATION BY PHYSICIAN I have seen and examined the patient. I reviewed the documentation, medical decision making, and treatment plan as noted by the mid-level provider above. I agree with the findings and plan of care. Narciso Zamudio IV, MD, [facility] Feb 28, 2025 11:32
[2025-02-28 11:37] LABS: NUCLEATED RED BLOOD CELLS 0.0 % (0.0-0.19); PLATELET COUNT (AUTO) 56.0 K/uL (130-400); RED BLOOD CELL COUNT(AUTO) 3.0 MIL/uL (4.00-5.50); RED CELL DISTRIBUTION WIDTH 13.9 % (11.0-15.5); WHITE BLOOD COUNT (AUTO) 3.4 K/uL (4.8-10.8)
--- NOTE | 2025-02-28 18:33 | NUR ---
DCP: INITIAL ASSESSMENT Patient lives with daughter, Daria Case. She has no home services. Patient has BPM at home. She needs help with ADLs and does not drive. Patient has no PCP. Pharmacy is [facility] in [place]. Patient voiced no safety concerns regarding returning home and states she has no difficulty with housing or buying food. DCP is home. Addendum: 02/28/25 at 1834 by MARGE MCGHEE SS Amended: Links added.
[2025-03-01 00:29] VITALS: BP 123/57; PULSE 66; RESP 18; TEMP 98.7
[2025-03-01 04:00] VITALS: BP 107/59; PULSE 68; RESP 18; TEMP 98
[2025-03-01 04:45] LABS: NUCLEATED RED BLOOD CELLS 0.0 % (0.0-0.19); PLATELET COUNT (AUTO) 63.0 K/uL (130-400); RED BLOOD CELL COUNT(AUTO) 3.18 MIL/uL (4.00-5.50); RED CELL DISTRIBUTION WIDTH 13.5 % (11.0-15.5); WHITE BLOOD COUNT (AUTO) 3.8 K/uL (4.8-10.8)
[2025-03-01 05:32] LABS: ASPARTATE AMINOTRANSFERASE 119.0 U/L (10-37); CREATININE 0.5 mg/dL (0.5-1.0); GLOMERULAR FILTR. RATE CALC 105.0 mL/min (>90); GLUCOSE,RANDOM 117.0 mg/dL (70-105); SODIUM SERUM 140.0 mmol/L (136-145); TOTAL PROTEIN, SERUM 6.1 g/dL (6.0-8.3); UREA NITROGEN, BLOOD 7.0 mg/dL (7-18)
[2025-03-01 07:44] VITALS: BP 111/64; PULSE 61; RESP 16; TEMP 97.8
[2025-03-01 12:06] VITALS: BP 107/69; PULSE 64; RESP 16; TEMP 97.9
[2025-03-01] MEDS ORDERED: PANT40TA55 PO (13:06)
--- NOTE | 2025-03-01 13:41 | DS ---
Discharge Summary Hospital Course Summary: Hospital Course: The patient presented to the emergency department with complaints of vomiting blood. She has a known history of liver cirrhosis and hepatitis C. On initial evaluation, she was hemodynamically stable. Physical examination revealed an awake, alert, and oriented patient with unlabored respirations, clear bilateral breath sounds, and a soft, non-distended abdomen. Pertinent Labs and Imaging: WBC: 7.5 Hemoglobin: 12.8 (downtrending during admission) Hematocrit: 37.2 Platelets: 110 BUN: 34 Glucose: 134 PT: 13, INR: 1.25 FOBT: Positive Mild troponin elevation, likely type 2 from demand mismatch Imaging: CT Abdomen/Pelvis (no contrast): No acute intra-abdominal or pelvic abnormality; findings suggest hepatic cirrhosis. Chest X-ray: No acute cardiopulmonary process. Procedures: EGD (12/28/2022): Grade 1 esophageal varices in the lower third of the esophagus; erythematous mucosa in the antrum. Repeat EGD with MAC performed during this admission per GI recommendation. Consultations: Gastroenterology: Recommended EGD with monitored anesthesia care (MAC). Hospital Management: Monitored hemoglobin and hematocrit, which showed a slight downtrend. Serial laboratory monitoring, including LFTs. Supportive care for upper GI bleed. All questions addressed; patient agreed to recommended procedures. Discharge Condition: Patient is stable at the time of discharge. She is awake, alert, and oriented x3. Vitals are stable. No active bleeding noted. Discharge Instructions: Avoid NSAIDs and alcohol. Maintain a low-sodium diet. Monitor for signs of recurrent GI bleeding (melena, hematemesis, dizziness, syncope). Follow up with gastroenterology as scheduled. Adhere to medication regimen as prescribed. Return to the emergency department for any worsening symptoms, including recurrent vomiting of blood, black tarry stools, chest pain, or shortness of breath. Isobutylene Operator Chief(s): TDFlorence Assessment/Plan: ASSESSMENT: Post EGD: * Upper GI bleed, likely secondary to gastritis in the setting of cirrhosis * Grade 1 esophageal varices without active bleeding * Hemoglobin slightly downtrending; monitoring closely Hematemesis POA Melena Thrombocytopenia Liver cirrhosis Hepatitis cirrhosis per CT A/P (02/27/25) History of hepatitis-C Mild troponin elevation likely type 2from demand mismatch Discharge Assessment: Upper GI bleed, likely secondary to gastritis in the setting of cirrhosis Grade 1 esophageal varices without active bleeding Hematemesis Melena Thrombocytopenia Liver cirrhosis (hepatitis C-related) Hepatitis cirrhosis per CT A/P (02/27/25) Mild troponin elevation, likely type 2 from demand mismatch Home Medications: Active Scripts Pantoprazole Sodium (Protonix) 40 Mg Ectab, 40 MG PO BID for 30 Days, #60 TAB.EC 1 Refill Prov:TRISTAN AGUILAR MD 09/07/22 Time spent arranging discharge: 31-60 minutes ATTESTATION BY PHYSICIAN I have seen and examined the patient. I reviewed the documentation, medical decision making, and treatment plan as noted by the mid-level provider above. I agree with the findings and plan of care. Narciso Zamudio IV, MD, [facility] Mar 01, 2025 13:40
--- NOTE | 2025-03-01 15:11 | NUR ---
DISCHARGE INSTRUCTIONS AND EDUCATION ON NEW MEDICATIONS WERE GIVEN TO THIS PATIENT. SHE VOICED UNDERSTANDING. FOLLOW UP APPT DATE AND TIME WITH [place] [facility] WERE PROVIDED. TELE PACK WAS REMOVED AND RETURNED TO TELE ROOM. PIV TO LEFT HAND WAS REMOVED WITH CATHETER INTACT AND DRY DRESSING WAS APPLIED. PATIENT WAS TAKEN DOWN TO PRIVATE VEHICLE VIA WHEEL CHAIR.
[2025-03-01 15:23] VITALS: BP 144/72; PULSE 75; RESP 16; TEMP 98
== END 2025-03-01 15:35 | disposition home or self-care (01) | DRG 432 ==
LOC: EDH 13:23 → EDHIP 15:44 → 2AH 17:45
PROVIDERS: ADMIT Internal Medicine; ATTEND Internal Medicine
PROC: 0DJ08ZZ Inspection of Upper Intestinal Tract, Via Natural or Artificial Opening Endoscopic (ICD-10-PCS; principal; 2025-02-27)
DX: K74.60 Unspecified cirrhosis of liver (principal); K29.71 Gastritis, unspecified, with bleeding; I85.10 Secondary esophageal varices without bleeding; D69.6 Thrombocytopenia, unspecified; I10 Essential (primary) hypertension; B19.20 Unspecified viral hepatitis C without hepatic coma; F41.9 Anxiety disorder, unspecified
CPT/HCPCS: 36415; 43235; 71045; 74176; 80048; 80053; 80076; 80305; 81001; 82270; 82550; 83036; 83735; 84145; 84443; 84484; 85014; 85018; 85025; 85027; 85610; 85730; 86140; 86850; 86900; 86901; 87086; 93005; 96374; 99285; G0378; J2354; J2470; J2704; J7050; A4215; A4222; A4223; A4620; J3490